=== PATIENT | male | born 1930 | race Two or more races ===

== ENCOUNTER 2018-08-05 13:19 | Inpatient (IN) | payer MEDICARE, OTHER ==
[~2018-08-05] VITALS: Ht 165.1 cm; Wt 63.5 kg
--- NOTE | 2018-08-05 14:21 | Emergency Room Report ---
History of Present Illness General Chief Complaint: General Complaint Source: Family Member Present Illness HPI Patient has a history of schizophrenia. Patient apparently is exhibiting abnormal behavior hearing things and seeing things. He appears to be more confused than usual. He appears to very weak as well. There is concerned that he perhaps might need some type of placement. Patient was brought here because of his worsening confusion. In addition he is experiencing significant bilateral lower extremity edema. Patient denies any chest pain orthopnea shortness of breath at this time. Patient does have a very slow gait appears to be confused. Patient is guided by his grandson. No other complaints are noted. Patient was seen by Dr. Wilmer Jang in the emergency department. He was felt that patient likely require admission for further management given patient' s altered mental status and likely has a UTI or other infectious process.. No other modifying factors. No other associated signs and symptoms. No other complaints were noted. Allergies: Coded Allergies: UNABLE TO ASSESS (Unverified , 08/05/18) Patient History Past Medical History: psych hx, other - Anxiety, Parkinson's disease, PMH Narrative Hernia Past Surgical History: none Pertinent Family History: none Social History: Denies: smoking, alcohol use, drug use Reviewed Nursing Documentation: PMH: Agreed; PSxH: Agreed Nursing Documentation-PMH Past Medical History: No History, Except For Hx Gastrointestinal Problems: No - hernia History Of Psychiatric Problem: No - schizoprenia, parkinson dz, anxiety Review of Systems All Other Systems: negative except mentioned in HPI Physical Exam Vital Signs Date Time Temp Pulse Resp B/P (MAP) Pulse Ox O2 Delivery O2 Flow Rate FiO2 08/05/18 13:44 97.9 56 18 166/69 (101) 95 Room Air Sp02 EP Interpretation: reviewed, normal General Appearance: alert, mild distress, thin, Chronically Ill Head: normocephalic, atraumatic Eyes: bilateral eye normal inspection ENT: normal ENT inspection, hearing grossly normal, normal voice, dry mucus membranes Neck: normal inspection, full range of motion, supple, no bony tend Respiratory: normal inspection, lungs clear, normal breath sounds, no respiratory distress, no retraction, no wheezing Cardiovascular #1: regular rate, rhythm, edema - Bilateral lower extremity Gastrointestinal: normal inspection, normal bowel sounds, non tender, soft, no guarding, other - No evidence of incarcerated hernia Genitourinary: no CVA tenderness Musculoskeletal: normal inspection, back normal, normal range of motion Neurologic: normal inspection, alert, responsive Psychiatric: other - Confused, auditory visual hallucinations per patient's grandson Skin: normal inspection, normal color, no rash Medical Decision Making Diagnostic Impression: Primary Impression: Altered mental status Additional Impression: Failure to thrive ER Course Patient presents emergency department today with generalized weakness and altered mental status. Patient apparently has not been eating has not been thriving and has not been able to perform activities of daily requirements. Patient apparently has been more confused with weight loss and was seen by Dr. Wilmer Chapin. Patient was referred to the emergency department further evaluation. Patient was seen by Dr. Wilmer Chapin in the ER as well. He knows the patient well and felt the patient is exhibiting evidence of failure to thrive altered mental status. He felt the patient require admission for further evaluation. Therefore patient was admitted to Dr. Wilmer Chapin per his request. Patient's laboratory work-up was not impressive emergency department at this time. Labs Test 08/05/18 15:30 08/05/18 15:45 White Blood Count 5.7 K/UL (4.8-10.8) Red Blood Count 4.37 M/UL (4.70-6.10) Hemoglobin 13.7 G/DL (14.2-18.0) Hematocrit 39.5 % (42.0-52.0) Mean Corpuscular Volume 90 FL (80-99) Mean Corpuscular Hemoglobin 31.3 PG (27.0-31.0) Mean Corpuscular Hemoglobin Concent 34.6 G/DL (32.0-36.0) Red Cell Distribution Width 13.0 % (11.6-14.8) Platelet Count 106 K/UL (150-450) Mean Platelet Volume 9.5 FL (6.5-10.1) Neutrophils (%) (Auto) 46.5 % (45.0-75.0) Lymphocytes (%) (Auto) 42.2 % (20.0-45.0) Monocytes (%) (Auto) 8.2 % (1.0-10.0) Eosinophils (%) (Auto) 2.4 % (0.0-3.0) Basophils (%) (Auto) 0.7 % (0.0-2.0) Sodium Level 141 MMOL/L (136-145) Potassium Level 4.4 MMOL/L (3.5-5.1) Chloride Level 105 MMOL/L (98-107) Carbon Dioxide Level 27 MMOL/L (21-32) Anion Gap 9 mmol/L (5-15) Blood Urea Nitrogen 19 mg/dL (7-18) Creatinine 0.9 MG/DL (0.55-1.30) Estimat Glomerular Filtration Rate mL/min (>60) Glucose Level 108 MG/DL (74-106) Calcium Level 9.3 MG/DL (8.5-10.1) Total Bilirubin 0.9 MG/DL (0.2-1.0) Aspartate Amino Transf (AST/SGOT) 18 U/L (15-37) Alanine Aminotransferase (ALT/SGPT) 14 U/L (12-78) Alkaline Phosphatase 93 U/L (46-116) Total Creatine Kinase 70 U/L (26-308) Creatine Kinase MB 1.5 NG/ML (0.0-3.6) Creatine Kinase MB Relative Index 2.1 Troponin I 0.006 ng/mL (0.000-0.056) Total Protein 7.0 G/DL (6.4-8.2) Albumin 3.9 G/DL (3.4-5.0) Globulin 3.1 g/dL Albumin/Globulin Ratio 1.3 (1.0-2.7) Urine Color Pale yellow Urine Appearance Clear Urine pH 6.5 (4.5-8.0) Urine Specific [place] 1.010 (1.005-1.035) Urine Protein Negative (NEGATIVE) Urine Glucose (UA) Negative (NEGATIVE) Urine Ketones Negative (NEGATIVE) Urine Blood Negative (NEGATIVE) Urine Nitrite Negative (NEGATIVE) Urine Bilirubin Negative (NEGATIVE) Urine Urobilinogen 1 MG/DL (0.0-1.0) Urine Leukocyte Esterase Negative (NEGATIVE) Urine RBC 0-2 /HPF (0 - 0) Urine WBC 0 /HPF (0 - 0) Urine Squamous Epithelial Cells Occasional /LPF Urine Bacteria Occasional /HPF (NONE) EKG Diagnostic Results Rhythm: NSR ST Segments: other - rbbb Rhythm Strip Diag. Results EP Interpretation: yes Rate: 100 Rhythm: NSR, no ectopy, other - Occasional PVCs. Chest X-Ray Diagnostic Results Chest X-Ray Diagnostic Results : Chest X-Ray Ordered: Yes # of Views/Limited/Complete: 1 View Indication: Other - Weakness EP Interpretation: Yes Interpretation: no consolidation, no effusion, no pneumothorax Impression: No acute disease Electronically Signed by: Electronically signed by Nilesh Stringer MD Last Vital Signs Date Time Temp Pulse Resp B/P (MAP) Pulse Ox O2 Delivery O2 Flow Rate FiO2 08/05/18 13:44 97.9 56 18 166/69 (101) 95 Room Air Status: improved Disposition: ADMITTED INPATIENT Condition: Serious Scripts No Active Prescriptions or Reported Meds Nilesh Stringer MD Aug 05, 2018 14:21
[2018-08-05] MEDS ORDERED: Albuterol/Ipratropium 3ml neb HHN PRN (15:15)
[2018-08-05] MEDS ORDERED: Morphine Sulfate 2mg/ml Inj(IV/IM USE ONLY) IVP PRN (15:15)
[2018-08-05] MEDS ORDERED: Miralax 17gm pkt ORAL PRN (15:15)
--- NOTE | 2018-08-05 15:16 | Consultation ---
History of Present Illness General Date patient seen: Aug 05, 2018 Chief Complaint: General Complaint Present Illness HPI 88 year old male with history of schizophrenia, Anxiety, Parkinson's disease presented to ER with CC of abnormal behavior hearing things and seeing things. He appears to be more confused than usual. He appears to be very weak as well. He was diagnosed to have UTI or other infectious process.. No other modifying factors. No other associated signs and symptoms. No other complaints were noted. Allergies: Coded Allergies: No Known Allergies (Unverified , 08/05/18) Medication History No Active Prescriptions or Reported Meds Patient History Healthcare decision maker Resuscitation status Advanced Directive on File Past Medical/Surgical History Past Medical/Surgical History: (1) Schizophrenia (2) Parkinson disease Review of Systems Constitutional: Reports: no symptoms ENT: Reports: no symptoms Physical Exam General Appearance: WD/WN Lines, tubes and drains: peripheral, central line HEENT: normocephalic, atraumatic Neck: non-tender, normal alignment Respiratory/Chest: chest wall non-tender Cardiovascular/Chest: normal peripheral pulses, normal rate Abdomen: no organomegaly Genitourinary/Rectal: normal genital exam Extremities: non-tender Last 24 Hour Vital Signs Date Time Temp Pulse Resp B/P (MAP) Pulse Ox O2 Delivery O2 Flow Rate FiO2 08/05/18 13:44 97.9 56 18 166/69 (101) 95 Room Air Height (Feet): 5 Height (Inches): 9.00 Weight (Pounds): 150 Assessment/Plan Problem List: (1) Acute encephalopathy ICD Codes: G93.40 - Encephalopathy, unspecified SNOMED: 68454191, 946955482 (2) UTI (urinary tract infection) ICD Codes: N39.0 - UTI (urinary tract infection) SNOMED: 41169130 (3) Schizophrenia ICD Codes: F20.9 - Schizophrenia, unspecified SNOMED: 67294711 (4) Parkinson disease ICD Codes: G20 - Parkinson's disease SNOMED: 69539949 Gina Rodriguez MD Aug 05, 2018 15:16
[2018-08-05 15:30] VITALS: BP 187/70
--- NOTE | 2018-08-05 15:30 | NUR ---
ED Nurse Note: FIRST CONTACT WITH PT. A/OX3. BROUGHT BY ANJELICA FOR PCP, DR. BIRMINGHAM'S RECOMMENDATION. PER ANJELICA, PT WAS ADMITTED TO [facility] AND WAS INSTRUCTED TO SEE DR. BIRMINGHAM. SEEN BY DR. BIRMINGHAM EARLIER AT [facility] ED. DOES NOT HAVE ANY MEDICAL COMPLAINTS AT THIS TIME. NO LABOR BREATHING. SKIN WARM TO DRY. DENIES ANY PAIN. WILL CONTINUE TO MONIOTOR.
--- NOTE | 2018-08-05 15:35 | NUR ---
ED Nurse Note: PER TRIAGE NURSE, PT'S GRANDSON STATED THAT PT WAS ADMITTED TO [facility] AND WAS DIAGNOSED SCHIZO AND WAS RECOMMENDED PSYCH MEDS. BUT PER GRANDSON, THE FAMILY DECIDED TO NOT START ANY PSYCH MEDS DUE TO RISK OF SIDE EFFECTS BUT PT'S SYMPTOMS GOT WORSE. THEREFORE, WAS TOLD TO BRING PT IN TO SEE DR. BIRMINGHAM.
[2018-08-05 15:52] LABS: BASOPHILS % (AUTO) 0.7 % (0.0-2.0); EOSINOPHILS % (AUTO) 2.4 % (0.0-3.0); HEMATOCRIT 39.5 % (42.0-52.0); HEMOGLOBIN 13.7 G/DL (14.2-18.0); LYMPHOCYTES % (AUTO) 42.2 % (20.0-45.0); MEAN CORPUSCULAR VOLUME 90 FL (80-99); MONOCYTES % (AUTO) 8.2 % (1.0-10.0); NEUTROPHILS % (AUTO) 46.5 % (45.0-75.0); PLATELET COUNT 106 K/UL (150-450); RED BLOOD COUNT 4.37 M/UL (4.70-6.10); WHITE BLOOD COUNT 5.7 K/UL (4.8-10.8)
[2018-08-05 15:59] LABS: APPEARANCE,URINE CLEAR; BILIRUBIN, URINE NEGATIVE (NEGATIVE); COLOR,URINE PALE YELLOW; GLUCOSE, URINE (UA) NEGATIVE (NEGATIVE); KETONES,URINE NEGATIVE (NEGATIVE); LEUKOCYTE ESTERASE ,URINE NEGATIVE (NEGATIVE); NITRITE,URINE NEGATIVE (NEGATIVE); PH,URINE 6.5 (4.5-8.0); PROTEIN,URINE NEGATIVE (NEGATIVE); UROBILINOGEN,URINE 1 MG/DL (0.0-1.0)
[2018-08-05 16:13] LABS: ANION GAP 9 mmol/L (5-15); BLOOD UREA NITROGEN 19 mg/dL (7-18); CALCIUM 9.3 MG/DL (8.5-10.1); CARBON DIOXIDE 27 MMOL/L (21-32); CHLORIDE 105 MMOL/L (98-107); CREATININE 0.9 MG/DL (0.55-1.30); POTASSIUM 4.4 MMOL/L (3.5-5.1); SODIUM 141 MMOL/L (136-145)
[2018-08-05 16:27] LABS: ALANINE AMINOTRANSFERASE 14 U/L (12-78); ALBUMIN 3.9 G/DL (3.4-5.0); ALBUMIN/GLOBULIN RATIO 1.3 (1.0-2.7); ALKALINE PHOSPHATASE 93 U/L (46-116); ASPARTATE AMINO TRANSFERASE 18 U/L (15-37); BILIRUBIN,TOTAL 0.9 MG/DL (0.2-1.0); CKMB 1.5 NG/ML (0.0-3.6); CREATINE KINASE 70 U/L (26-308)
[2018-08-05 17:31] VITALS: BP 120/82
--- NOTE | 2018-08-05 17:40 | NUR ---
ED Nurse Note: PER CHARGE NURSE FROM 4E, RECEIVING RN IS WITH ANOTHER PATIENT AND UNABLE TO TAKE REPORT, WAS TOLD TO CALL BACK IN 10 MIN. CHARGE NURSE MADE AWARE.
--- NOTE | 2018-08-05 17:43 | NUR ---
ED Nurse Note: PER STUCCO PLASTERER, UA RESULT IS PROCESSED FOR ADMITTING DOCTOR'S ORDER SO IT'S OK THAT ERMD'S ORDER FOR UA IS NOT PROCESSED ON THE CHART.
--- NOTE | 2018-08-05 17:59 | NUR ---
ED Nurse Note: TELEPHONE REPORT GIVEN TO LEXIS RIOS
[2018-08-05 18:01] VITALS: BP 140/99
[2018-08-05 18:20] VITALS: BP 160/91
--- NOTE | 2018-08-05 18:20 | NUR ---
NURSE NOTES: PATIENT RECEIVED FROM ER DEPT. VIA [facility]. REPORT RECEIVED FROM MARISA PIRES. AOX1-2. NO FAMILY PRESENT. BELONGINGS CHECKED AND ACCOUNTED FOR.. PATIENT TRANSFERRED INTO [place] BED WITH BED ALARM ACTIVATED. ORIENTED PATIENT TO ROOM. CALL LIGHT WITHIN REACH. RETURN DEMONSTRATION FAIR. NEEDS REINFORCEMENT.BED IN LOWEST AND LOCKED POSITION.NEW ADMIT ORDERS RECEIVED BY ER DEPT.
--- NOTE | 2018-08-05 18:36 | Diagnostic Imaging Report ---
Indication: Cough Technique: One view of the chest Comparison: none Findings: The right costophrenic angle is cut off the exam. Bilateral nodular opacities at the lung bases may reflect calcified granulomata or nipple shadows. These are symmetric, favoring the latter. Lungs and pleural spaces are otherwise clear. Heart size is normal. Impression: No definite acute process. Findings as noted This agrees with the preliminary interpretation provided by the emergency room physician
--- NOTE | 2018-08-05 18:45 | History and Physical Report ---
DATE OF ADMISSION: 08/05/2018 CONSULTANTS: 1. Zia Carroll M.D. 2. Gina Rodriguez M.D. 3. Ethel Cavazos M.D. CHIEF COMPLAINT: Weakness and confusion. BRIEF HISTORY: This is an 88-year-old male, who lives at home in an apartment. Son noticed that he has been getting weaker and more confused in the last few days, possibly some dysuria, possibly urinary tract infection . The patient was sent to [facility], being seen now in the ER, most likely will be admitted, so he transferred to a Nursing Facility for rehabilitation after. Currently, the patient walks with a cane, slightly confused, oriented x2, in no acute distress. PAST MEDICAL HISTORY: Anxiety. PAST SURGICAL HISTORY: Prostate surgery. MEDICATIONS: We will obtain the list shortly. ALLERGIES: Denies. SOCIAL HISTORY: No smoking. No alcohol. No intravenous drug abuse. FAMILY HISTORY: Noncontributory. PHYSICAL EXAMINATION: GENERAL: Calm, sitting on the chair in ER, oriented x2, in no acute distress. VITAL SIGNS: Temperature 97 degrees, pulse 56, respirations 18, and blood pressure 166/69. CARDIOVASCULAR: No murmurs. LUNGS: Distant and clear. ABDOMEN: Bowel sounds positive. Soft, nontender, and nondistended. EXTREMITIES: Shows no cyanosis, clubbing, or edema. NEUROLOGIC: The patient moves all extremities, slightly weak. LABORATORY AND DIAGNOSTIC DATA: Laboratories are pending. ASSESSMENT: 1. Weakness. 2. Confusion. 3. Anxiety. PLAN: 1. Admit to . 2. PT, OT, and dietary followup. 3. Check laboratories when become available. 4. Resume home medications. 5. We will continue to follow this patient medically. Wilmer Chapin D.O. DR: NILDA JOB#: [id number] CC:
--- NOTE | 2018-08-05 19:34 | NUR ---
NURSE NOTES: HAND-OFF: Report given to SUNITHA PIRES.
--- NOTE | 2018-08-05 19:49 | NUR ---
NURSE NOTES: Received patient from LEXIS Mcelroy. Received patient laying on the bed comfortably. Patient is AAO x 2. Patient is breathing evenly and unlabored without signs of distress, discomfort, or SOB. No signs of pain noted at this time. Patient has right AC 20 g IV saline locked intact, dry, and clean. Patient bed is placed at the lowest level with alarm and brakes on. Patient's call light is placed within reach for any assistance needed. Will continue to monitor.
--- NOTE | 2018-08-05 19:51 | NUR ---
NURSE NOTES: SPOKE TO NURSING MERCURY CRACKING TESTER OF PATIENT'S [employer] OFFSET PRESS FEEDER TO BE PLACED IN SAFE. PER MERCURY CRACKING TESTER, GIVE PERSONAL ITEM TO ONCOMING RN AND FOR THEM TO CALL TO HAVE SECURITY AND NURSING MERCURY CRACKING TESTER AT BEDSIDE TO WITNESS AND HAVE PT. SIGN AND THEN PLACE IN SAFE. MADE OVIDIO HELTON RN AWARE. BELT HANDED OFF TO NURSE.
[2018-08-05 20:00] VITALS: BP 152/85
[2018-08-05] MEDS ORDERED: Vancomycin 1.25gm Premix IVPB ONE (22:00)
--- NOTE | 2018-08-05 22:00 | NUR ---
NURSE NOTES: Went over the belongings with the patient and patient's grandson. Patient decided to sent home checkbook, ramirez, and movado watch with his grandson. Patient decided to keep the wallet and victoria within, farragamo belt, clothings, shoes, and cellphone with him. Patient was not able to sign the belongings paper at this time so the grandson signed for him.
[2018-08-05] MEDS: Heparin 5000 units/ml inj SUBQ SCH (22:18)
[2018-08-05] MEDS ORDERED: Cefepime HCl 2 GM in D5W 110 ML IV ONE (23:00)
--- NOTE | 2018-08-05 23:38 | Consultation ---
History of Present Illness General Date patient seen: Aug 05, 2018 Chief Complaint: Confusion/ Weakness Referring physician: Dr. Wilmer Chapin Present Illness HPI Miesha Mendez is an 88-year-old male with a PMH of anxiety and prostate surgery. He lives in an apartment with his adult son, who recently noticed that he has been getting weaker and more confused in the last few days, possibly with some dysuria, possibly urinary tract infection. As such, his son doris him into [facility] ED for assessment of his symptoms. Currently, the patient walks with a cane, slightly confused, oriented x2, in no acute distress. Neurological consultation has been requested to assess these symptoms. Allergies: Coded Allergies: No Known Allergies (Unverified , 08/05/18) Medication History Scheduled Memantine Hcl* (Namenda*), 5 MG ORAL DAILY, (Reported) Polyethylene Glycol 3350* (Miralax*), 17 GM ORAL DAILY, (Reported) Temazepam (Temazepam*), 15 MG ORAL BEDTIME, (Reported) Miscellaneous Medications Ipratropium/Albuterol Sulfate (DuoNeb 0.5-3(2.5)mg/3ml), 3 ML HHN, (Reported) Patient History Limited by: medical condition History Provided By: Medical Record Healthcare decision maker Resuscitation status Advanced Directive on File Past Medical/Surgical History Past Medical/Surgical History: (1) Acute encephalopathy (2) Parkinson disease (3) Schizophrenia Review of Systems Constitutional: Denies: no symptoms, see HPI, chills, sweats, fever, malaise, weakness, other Eye: Denies: no symptoms, see HPI, eye pain, blurred vision, tearing, double vision, nose pain, nose congestion, acuity changes, discharge, other ENT: Denies: no symptoms, see HPI, ear pain, ear discharge, nose pain, nose congestion, throat pain, throat swelling, mouth pain, hearing loss, nasal discharge, other Respiratory: Denies: no symptoms, see HPI, cough, orthopnea, shortness of breath, stridor, wheezing, TORRES, sputum, other Cardiovascular: Denies: no symptoms, see HPI, chest pain, edema, palpitations, syncope, PND, other Gastrointestinal: Denies: no symptoms, see HPI, abdominal pain, constipation, diarrhea, nausea, vomiting, melena, hematemesis, other Genitourinary: Denies: no symptoms, see HPI, discharge, dysuria, frequency, hematuria, pain, retention, incontinence, urgency, vag bleed/dc, other Musculoskeletal: Denies: no symptoms, see HPI, back pain, gout, joint pain, joint swelling, muscle pain, muscle stiffness, other Skin: Denies: no symptoms, see HPI, rash, change in color, change in hair/nails , dryness, lesions, other Psychiatric: Denies: no symptoms, see HPI, prior hx, anxiety, depressed feelings, emotional problems, SI, HI, hallucinations, other Neurological: Denies: no symptoms, see HPI, headache, numbness, paresthesia, seizure, tingling, tremors, focal weakness, syncope, dizziness, other Endocrine: Denies: no symptoms, see HPI, excessive sweating, flushing, intolerance to temperature, increased thirst, increased urine, unexplained weight loss, other Hematologic/Lymphatic: Denies: no symptoms, see HPI, anemia, blood clots, easy bleeding, easy bruising, swollen glands, diathesis, other All Other Systems: negative except mentioned in HPI Physical Exam General Appearance: WD/WN, no apparent distress, alert, alert oriented x3 Lines, tubes and drains: peripheral HEENT: normocephalic, atraumatic, anicteric, mucous membranes moist, PERRL, EOMI, pharynx normal, supple, no JVD Neck: normal alignment, supple, normal inspection Respiratory/Chest: normal breath sounds, no respiratory distress, no accessory muscle use Cardiovascular/Chest: normal peripheral pulses, no JVD Extremities: normal range of motion, non-tender, normal inspection, no edema, no cyanosis Skin Exam: normal pigmentation, warm/dry, no diaphoresis Neurologic: in store banker II-XII grossly normal, no motor/sensory deficits, alert, oriented x 3, responsive, normal mood/affect Musculoskeletal: normal muscle bulk, no effusion Last 24 Hour Vital Signs Date Time Temp Pulse Resp B/P (MAP) Pulse Ox O2 Delivery O2 Flow Rate FiO2 08/05/18 22:06 Room Air 08/05/18 20:00 97.8 62 20 152/85 (107) 95 08/05/18 18:20 98.2 72 18 160/91 (114) 98 08/05/18 18:07 97.9 68 18 140/99 97 Room Air 08/05/18 18:01 68 18 140/99 97 Room Air 08/05/18 17:31 63 26 120/82 97 Room Air 08/05/18 15:30 64 18 Room Air 08/05/18 15:30 64 17 187/70 98 Room Air 08/05/18 13:44 97.9 56 18 166/69 (101) 95 Room Air Laboratory Tests Test 08/05/18 15:30 08/05/18 15:45 White Blood Count 5.7 K/UL (4.8-10.8) Red Blood Count 4.37 M/UL (4.70-6.10) L Hemoglobin 13.7 G/DL (14.2-18.0) L Hematocrit 39.5 % (42.0-52.0) L Mean Corpuscular Volume 90 FL (80-99) Mean Corpuscular Hemoglobin 31.3 PG (27.0-31.0) H Mean Corpuscular Hemoglobin Concent 34.6 G/DL (32.0-36.0) Red Cell Distribution Width 13.0 % (11.6-14.8) Platelet Count 106 K/UL (150-450) L Mean Platelet Volume 9.5 FL (6.5-10.1) Neutrophils (%) (Auto) 46.5 % (45.0-75.0) Lymphocytes (%) (Auto) 42.2 % (20.0-45.0) Monocytes (%) (Auto) 8.2 % (1.0-10.0) Eosinophils (%) (Auto) 2.4 % (0.0-3.0) Basophils (%) (Auto) 0.7 % (0.0-2.0) Sodium Level 141 MMOL/L (136-145) Potassium Level 4.4 MMOL/L (3.5-5.1) Chloride Level 105 MMOL/L (98-107) Carbon Dioxide Level 27 MMOL/L (21-32) Anion Gap 9 mmol/L (5-15) Blood Urea Nitrogen 19 mg/dL (7-18) H Creatinine 0.9 MG/DL (0.55-1.30) Estimat Glomerular Filtration Rate mL/min (>60) Glucose Level 108 MG/DL (74-106) H Calcium Level 9.3 MG/DL (8.5-10.1) Total Bilirubin 0.9 MG/DL (0.2-1.0) Aspartate Amino Transf (AST/SGOT) 18 U/L (15-37) Alanine Aminotransferase (ALT/SGPT) 14 U/L (12-78) Alkaline Phosphatase 93 U/L (46-116) Total Creatine Kinase 70 U/L (26-308) Creatine Kinase MB 1.5 NG/ML (0.0-3.6) Creatine Kinase MB Relative Index 2.1 Troponin I 0.006 ng/mL (0.000-0.056) Total Protein 7.0 G/DL (6.4-8.2) Albumin 3.9 G/DL (3.4-5.0) Globulin 3.1 g/dL Albumin/Globulin Ratio 1.3 (1.0-2.7) Urine Color Pale yellow Urine Appearance Clear Urine pH 6.5 (4.5-8.0) Urine Specific [place] 1.010 (1.005-1.035) Urine Protein Negative (NEGATIVE) Urine Glucose (UA) Negative (NEGATIVE) Urine Ketones Negative (NEGATIVE) Urine Blood Negative (NEGATIVE) Urine Nitrite Negative (NEGATIVE) Urine Bilirubin Negative (NEGATIVE) Urine Urobilinogen 1 MG/DL (0.0-1.0) H Urine Leukocyte Esterase Negative (NEGATIVE) Urine RBC 0-2 /HPF (0 - 0) H Urine WBC 0 /HPF (0 - 0) Urine Squamous Epithelial Cells Occasional /LPF Urine Bacteria Occasional /HPF (NONE) Height (Feet): 5 Height (Inches): 5.00 Weight (Pounds): 140 Medications Current Medications Medications (Trade) Dose Ordered Sig/Cosme Route PRN Reason Start Time Stop Time Status Last Admin Dose Admin Acetaminophen (Tylenol) 650 mg Q4H PRN ORAL T>100.5 08/05/18 15:15 09/04/18 15:14 Albuterol/ Ipratropium (Albuterol/ Ipratropium) 3 ml Q4H PRN HHN Shortness of Breath 08/05/18 15:15 08/10/18 15:14 Cefepime HCl 2 gm/ Dextrose 110 ml @ 220 mls/hr Q24H IV 08/06/18 11:00 08/13/18 10:59 Heparin Sodium (Porcine) (Heparin 5000 units/ml) 5,000 units EVERY 12 HOURS SUBQ 08/05/18 21:00 09/04/18 20:59 08/05/18 22:18 Morphine Sulfate (Morphine Sulfate) 2 mg Q4H PRN IVP Moderate Pain (Pain Scale 4-6) 08/05/18 15:15 08/12/18 15:14 Ondansetron HCl (Zofran) 4 mg Q6H PRN IVP Nausea & Vomiting 08/05/18 15:15 09/04/18 15:14 Phenazopyridine HCl (Pyridium) 100 mg DAILYPRN PRN ORAL dysuria 08/05/18 15:15 09/04/18 15:14 Polyethylene Glycol (Miralax) 17 gm DAILYPRN PRN ORAL Constipation 08/05/18 15:15 09/04/18 15:14 Temazepam (Restoril) 15 mg HSPRN PRN ORAL Insomnia 08/05/18 21:00 08/12/18 20:59 Vancomycin HCl (Vanco rx to dose) 1 ea DAILY PRN MISC per rx protocol 08/05/18 21:30 09/04/18 21:29 Vancomycin HCl 750 mg/Sodium Chloride 275 ml @ 183.333 mls/hr Q24H IVPB 08/06/18 22:00 08/11/18 21:59 Assessment/Plan Problem List: (1) UTI (urinary tract infection) ICD Codes: N39.0 - UTI (urinary tract infection) SNOMED: 06815471 (2) Altered mental status ICD Codes: R41.82 - Altered mental status, unspecified SNOMED: 114679478 (3) Acute encephalopathy ICD Codes: G93.40 - Encephalopathy, unspecified SNOMED: 57616484, 688900360 (4) Parkinson disease ICD Codes: G20 - Parkinson's disease SNOMED: 94933580 (5) Schizophrenia ICD Codes: F20.9 - Schizophrenia, unspecified SNOMED: 19336472 (6) Hypertension ICD Codes: I10 - Essential (primary) hypertension SNOMED: 57680408 Status: doing well Assessment/Plan: Likely increased AMS secondary to UTI- Acute Encephalopathy, now improved with IV Fluids and ABx SBP<140 Frequent Reorientation Maintain good sleep hygiene Psych Consult PRN Recommend avoidance of Opioids, benzos or anticholinergic meds. No indication for neuroimaging at this time. Adriana Lacy N.P. Aug 05, 2018 23:38
[2018-08-06] VITALS: BP 119/60
[2018-08-06] MEDS ORDERED: Vancomycin 1 GM in D5W 275 ML IV SCH (00:30)
[2018-08-06 02:54] LABS: APPEARANCE,URINE CLEAR; BILIRUBIN, URINE NEGATIVE (NEGATIVE); GLUCOSE, URINE (UA) NEGATIVE (NEGATIVE); KETONES,URINE NEGATIVE (NEGATIVE); LEUKOCYTE ESTERASE ,URINE NEGATIVE (NEGATIVE); NITRITE,URINE NEGATIVE (NEGATIVE); PH,URINE 5 (4.5-8.0); PROTEIN,URINE NEGATIVE (NEGATIVE); UROBILINOGEN,URINE NORMAL MG/DL (0.0-1.0)
[2018-08-06 03:07] LABS: COLOR,URINE YELLOW
[2018-08-06 04:00] VITALS: BP 118/96
--- NOTE | 2018-08-06 07:30 | NUR ---
NURSE NOTES: Received pt from LEXIS HERNANDEZ. pt is confused and orient x2. Pt is in RA, No SOB or acute respiratory distress noted. Pt has in tact iv access RAC 20G SL. All needs attended, bed is locked and is in the lowest position, call light within east reach. will continue to monitor. Addendum: 08/06/18 at 0747 by Clyde Jenkins RN ERROR Received pt from LEXIS QUEVEDO/KERRY.
--- NOTE | 2018-08-06 07:36 | NUR ---
HAND-OFF: Report given to LEXIS Tang.
[2018-08-06 08:00] VITALS: BP 120/95
[2018-08-06] MEDS: Heparin 5000 units/ml inj SUBQ SCH ×2 (08:58→21:19)
--- NOTE | 2018-08-06 09:15 | NUR ---
PT EVALUATION NOTE Patient seen for initial evaluation, see complete evaluation for details. Patient presents with generalized weakness which affects patient's ability to transfer and ambulate. Patient requires assistance to transfer and ambulate, able to ambulate up to 50 ft with a FWW with decreased safety awareness and balance. Patient will benefit from skilled inpatient PT intervention to address strength, balance, safety and functional mobility. Recommend home with home PT vs short term SNF for rehab at discharge once medically cleared by MD depending on patient's progress. Recommend FWW for home ambulation (if patient does not already own one). Addendum: 08/06/18 at 1310 by SEAN CASTILLO PT Amended: Links added.
[2018-08-06 10:07] LABS: BASOPHILS % (AUTO) 1.3 % (0.0-2.0); HEMATOCRIT 39.4 % (42.0-52.0); HEMOGLOBIN 13.4 G/DL (14.2-18.0); LYMPHOCYTES % (AUTO) 29.8 % (20.0-45.0); MEAN CORPUSCULAR VOLUME 93 FL (80-99); PLATELET COUNT 103 K/UL (150-450); RED BLOOD COUNT 4.23 M/UL (4.70-6.10); RED CELL DISTRIBUTION WIDTH 12.5 % (11.6-14.8); WHITE BLOOD COUNT 5.1 K/UL (4.8-10.8)
[2018-08-06 10:14] LABS: ALANINE AMINOTRANSFERASE 14 U/L (12-78); ALBUMIN 3.5 G/DL (3.4-5.0); ALBUMIN/GLOBULIN RATIO 1.2 (1.0-2.7); ALKALINE PHOSPHATASE 87 U/L (46-116); ANION GAP 10 mmol/L (5-15); ASPARTATE AMINO TRANSFERASE 16 U/L (15-37); BILIRUBIN,TOTAL 0.8 MG/DL (0.2-1.0); BLOOD UREA NITROGEN 21 mg/dL (7-18); CALCIUM 8.9 MG/DL (8.5-10.1); CARBON DIOXIDE 25 MMOL/L (21-32); CHLORIDE 106 MMOL/L (98-107); POTASSIUM 3.8 MMOL/L (3.5-5.1); SODIUM 141 MMOL/L (136-145)
[2018-08-06] MEDS: Cefepime HCl 2 GM in D5W 110 ML IV SCH (11:45)
[2018-08-06 12:00] VITALS: BP 126/89
--- NOTE | 2018-08-06 13:24 | NUR ---
RD ASSESSMENT & RECOMMENDATIONS SEE CARE ACTIVITY FOR COMPLETE ASSESSMENT DAILY ESTIMATED NEEDS: Needs based on Cardiac, advanced age 63.6lg 25-30 kcals/kg 9867-2709 total kcals 1-1.2 g protein/kg 64-76 g total protein 20-25 mL/kg 3503-3587 total fluid mLs NUTRITION DIAGNOSIS: Self feeding difficulty r/t advanced age, confusion, as evidenced by pt requires assistance at mealtimes. CURRENT DIET: Regular PO DIET RECOMMENDATIONS: Maintain Regular diet (texture as tolerated) ADDITIONAL RECOMMENDATIONS: 1) Rec CMM INSPECTOR eval for appropriate texture d/t advanced age + confusion 2) Monitor po intake/ need for snacks and / or supplements 3) Weekly calibrated bed weights OR obtain standing weights
--- NOTE | 2018-08-06 14:22 | Consultation ---
History of Present Illness General Date patient seen: Aug 06, 2018 Chief Complaint: General Complaint Referring physician: Dr. Wilmer Chapin Reason for Consultation: UTI Present Illness HPI Mr. Mendez is a 88 yo male with PMHx of Parkinsons, Schizophrenia and anxiety who was brought to the ED by family for increased confusion. Per family he was having halucinations and was more confused and weak then nromal. He also has b/ l edema of the legs. He was ad mitted for possible UTI as he had reported dyuria and increased AMS. He had no fever, leukocytosis, abnormal CXR or UA. He was started empirically on Cefepime and Vancomcyin. Blood Cx are pending. Today the patient still confused and cant tell me why he is in the hospital but denies dysuria. ID was consulted for UTI PMHx/PSHx Parkinsons Schizophrenia Anxiety SocHx No E/T/D FamHx Not Contributory Allergies: Coded Allergies: No Known Allergies (Unverified , 08/05/18) Medication History No Active Prescriptions or Reported Meds Patient History Healthcare decision maker Resuscitation status Advanced Directive on File Review of Systems ROS Narrative Unable to obtain as patient confused Physical Exam Last 24 Hour Vital Signs Date Time Temp Pulse Resp B/P (MAP) Pulse Ox O2 Delivery O2 Flow Rate FiO2 08/06/18 12:00 97.5 65 20 126/89 (101) 99 08/06/18 08:00 97.6 66 19 120/95 (103) 98 08/06/18 07:53 77 18 96 Room Air 21 08/06/18 04:00 97.0 62 20 118/96 (103) 97 08/06/18 00:00 97.3 62 18 119/60 (79) 96 08/05/18 22:06 Room Air 08/05/18 20:00 97.8 62 20 152/85 (107) 95 08/05/18 18:20 98.2 72 18 160/91 (114) 98 08/05/18 18:07 97.9 68 18 140/99 97 Room Air 08/05/18 18:01 68 18 140/99 97 Room Air 08/05/18 17:31 63 26 120/82 97 Room Air 08/05/18 15:30 64 18 Room Air 08/05/18 15:30 64 17 187/70 98 Room Air Intake and Output 08/05/18 08/06/18 18:59 06:59 Intake Total 385.000 ml Balance 385.000 ml Intake IV Total 385.000 ml # Voids 1 Laboratory Tests Test 08/05/18 15:30 08/05/18 15:45 08/06/18 00:00 08/06/18 09:26 White Blood Count 5.7 K/UL (4.8-10.8) 5.1 K/UL (4.8-10.8) Red Blood Count 4.37 M/UL (4.70-6.10) L 4.23 M/UL (4.70-6.10) L Hemoglobin 13.7 G/DL (14.2-18.0) L 13.4 G/DL (14.2-18.0) L Hematocrit 39.5 % (42.0-52.0) L 39.4 % (42.0-52.0) L Mean Corpuscular Volume 90 FL (80-99) 93 FL (80-99) Mean Corpuscular Hemoglobin 31.3 PG (27.0-31.0) H 31.8 PG (27.0-31.0) H Mean Corpuscular Hemoglobin Concent 34.6 G/DL (32.0-36.0) 34.1 G/DL (32.0-36.0) Red Cell Distribution Width 13.0 % (11.6-14.8) 12.5 % (11.6-14.8) Platelet Count 106 K/UL (150-450) L 103 K/UL (150-450) L Mean Platelet Volume 9.5 FL (6.5-10.1) 11.1 FL (6.5-10.1) H Neutrophils (%) (Auto) 46.5 % (45.0-75.0) 58.0 % (45.0-75.0) Lymphocytes (%) (Auto) 42.2 % (20.0-45.0) 29.8 % (20.0-45.0) Monocytes (%) (Auto) 8.2 % (1.0-10.0) 9.0 % (1.0-10.0) Eosinophils (%) (Auto) 2.4 % (0.0-3.0) 2.0 % (0.0-3.0) Basophils (%) (Auto) 0.7 % (0.0-2.0) 1.3 % (0.0-2.0) Sodium Level 141 MMOL/L (136-145) 141 MMOL/L (136-145) Potassium Level 4.4 MMOL/L (3.5-5.1) 3.8 MMOL/L (3.5-5.1) Chloride Level 105 MMOL/L (98-107) 106 MMOL/L (98-107) Carbon Dioxide Level 27 MMOL/L (21-32) 25 MMOL/L (21-32) Anion Gap 9 mmol/L (5-15) 10 mmol/L (5-15) Blood Urea Nitrogen 19 mg/dL (7-18) H 21 mg/dL (7-18) H Creatinine 0.9 MG/DL (0.55-1.30) 1.0 MG/DL (0.55-1.30) Estimat Glomerular Filtration Rate mL/min (>60) mL/min (>60) Glucose Level 108 MG/DL (74-106) H 140 MG/DL (74-106) H Calcium Level 9.3 MG/DL (8.5-10.1) 8.9 MG/DL (8.5-10.1) Total Bilirubin 0.9 MG/DL (0.2-1.0) 0.8 MG/DL (0.2-1.0) Aspartate Amino Transf (AST/SGOT) 18 U/L (15-37) 16 U/L (15-37) Alanine Aminotransferase (ALT/SGPT) 14 U/L (12-78) 14 U/L (12-78) Alkaline Phosphatase 93 U/L (46-116) 87 U/L (46-116) Total Creatine Kinase 70 U/L (26-308) Creatine Kinase MB 1.5 NG/ML (0.0-3.6) Creatine Kinase MB Relative Index 2.1 Troponin I 0.006 ng/mL (0.000-0.056) Total Protein 7.0 G/DL (6.4-8.2) 6.4 G/DL (6.4-8.2) Albumin 3.9 G/DL (3.4-5.0) 3.5 G/DL (3.4-5.0) Globulin 3.1 g/dL 2.9 g/dL Albumin/Globulin Ratio 1.3 (1.0-2.7) 1.2 (1.0-2.7) Urine Color Pale yellow Yellow Urine Appearance Clear Clear Urine pH 6.5 (4.5-8.0) 5 (4.5-8.0) Urine Specific [place] 1.010 (1.005-1.035) 1.015 (1.005-1.035) Urine Protein Negative (NEGATIVE) Negative (NEGATIVE) Urine Glucose (UA) Negative (NEGATIVE) Negative (NEGATIVE) Urine Ketones Negative (NEGATIVE) Negative (NEGATIVE) Urine Blood Negative (NEGATIVE) Negative (NEGATIVE) Urine Nitrite Negative (NEGATIVE) Negative (NEGATIVE) Urine Bilirubin Negative (NEGATIVE) Negative (NEGATIVE) Urine Urobilinogen 1 MG/DL (0.0-1.0) H Normal MG/DL (0.0-1.0) Urine Leukocyte Esterase Negative (NEGATIVE) Negative (NEGATIVE) Urine RBC 0-2 /HPF (0 - 0) H Urine WBC 0 /HPF (0 - 0) Urine Squamous Epithelial Cells Occasional /LPF Urine Bacteria Occasional /HPF (NONE) Height (Feet): 5 Height (Inches): 5.00 Weight (Pounds): 140 Medications Current Medications Medications (Trade) Dose Ordered Sig/Cosme Route PRN Reason Start Time Stop Time Status Last Admin Dose Admin Acetaminophen (Tylenol) 650 mg Q4H PRN ORAL T>100.5 08/05/18 15:15 09/04/18 15:14 Albuterol/ Ipratropium (Albuterol/ Ipratropium) 3 ml Q4H PRN HHN Shortness of Breath 08/05/18 15:15 08/10/18 15:14 Cefepime HCl 2 gm/ Dextrose 110 ml @ 220 mls/hr Q24H IV 08/06/18 11:00 08/13/18 10:59 08/06/18 11:45 Heparin Sodium (Porcine) (Heparin 5000 units/ml) 5,000 units EVERY 12 HOURS SUBQ 08/05/18 21:00 09/04/18 20:59 08/06/18 08:58 Morphine Sulfate (Morphine Sulfate) 2 mg Q4H PRN IVP Moderate Pain (Pain Scale 4-6) 08/05/18 15:15 08/12/18 15:14 Ondansetron HCl (Zofran) 4 mg Q6H PRN IVP Nausea & Vomiting 08/05/18 15:15 09/04/18 15:14 Phenazopyridine HCl (Pyridium) 100 mg DAILYPRN PRN ORAL dysuria 08/05/18 15:15 09/04/18 15:14 Polyethylene Glycol (Miralax) 17 gm DAILYPRN PRN ORAL Constipation 08/05/18 15:15 09/04/18 15:14 Temazepam (Restoril) 15 mg HSPRN PRN ORAL Insomnia 08/05/18 21:00 08/12/18 20:59 Vancomycin HCl (Vanco rx to dose) 1 ea DAILY PRN MISC per rx protocol 08/05/18 21:30 09/04/18 21:29 Vancomycin HCl 750 mg/Sodium Chloride 275 ml @ 183.333 mls/hr Q24H IVPB 08/06/18 22:00 08/11/18 21:59 Objective Narrative Gen: NAD HEENT: NCAT, MMM, EOMI, PERRL, No Oral lesion, no scleral icterus NECK: full range of motion, supple, no meningismus, No LAD, No JVD LUNGS: CTAB, No W/C, No Accessory muscle use CARDS: RRR, S1, S2, No M/R/G, ABD: Soft, NT, ND, No R/G, + BS, No HSM, No Masses : Deferred Ext: C/C/E, Pulses 2+ B/L (DP, Rad): NEURO: A/O x 1, Strength and Sensation Grossly intact PSYCH: Normal mood and affect SKIN: Warm/dry, No rashes Assessment/Plan Assessment/Plan: 88 yo male with PMHx of Parkinsons, Schizophrenia and anxiety who was brought to the ED by family for increased confusion. UTI UA but hx of confusion and dysuria f/u UCx Parkinsons Schizophrenia Anxiety PLAN: - Continue Cefepime #2 and Vancomycin #2 for now pending Cx - Monitor CBC and Temps - f/u Cultures Thank you for this consult. We will continue to follow the patient during this hospitalization. Jesús Subramanian MD Aug 06, 2018 14:22
--- NOTE | 2018-08-06 14:55 | Pulmonology Progress Note ---
Assessment/Plan Problems: (1) Acute encephalopathy (2) UTI (urinary tract infection) (3) Schizophrenia (4) Parkinson disease Assessment/Plan f/u wbc ID evaluation pt/ot venous doppler of legs obtain home meds neuro evaluation Subjective ROS Limited/Unobtainable: No Constitutional: Reports: no symptoms HEENT: Repors: no symptoms Respiratory: Reports: no symptoms Allergies: Coded Allergies: No Known Allergies (Unverified , 08/05/18) Objective Last 24 Hour Vital Signs Date Time Temp Pulse Resp B/P (MAP) Pulse Ox O2 Delivery O2 Flow Rate FiO2 08/06/18 12:00 97.5 65 20 126/89 (101) 99 08/06/18 08:00 97.6 66 19 120/95 (103) 98 08/06/18 07:53 77 18 96 Room Air 21 08/06/18 04:00 97.0 62 20 118/96 (103) 97 08/06/18 00:00 97.3 62 18 119/60 (79) 96 08/05/18 22:06 Room Air 08/05/18 20:00 97.8 62 20 152/85 (107) 95 08/05/18 18:20 98.2 72 18 160/91 (114) 98 08/05/18 18:07 97.9 68 18 140/99 97 Room Air 08/05/18 18:01 68 18 140/99 97 Room Air 08/05/18 17:31 63 26 120/82 97 Room Air 08/05/18 15:30 64 18 Room Air 08/05/18 15:30 64 17 187/70 98 Room Air Intake and Output 08/05/18 08/06/18 18:59 06:59 Intake Total 385.000 ml Balance 385.000 ml Intake IV Total 385.000 ml # Voids 1 General Appearance: WD/WN HEENT: normocephalic, anicteric Respiratory/Chest: chest wall non-tender, lungs clear, chest wall tender Cardiovascular: normal peripheral pulses, normal rate, regularly irregular Abdomen: normal bowel sounds Genitourinary: normal external genitalia Extremities: no clubbing Skin: no rash Laboratory Tests 08/05/18 15:30: White Blood Count 5.7, Red Blood Count 4.37L, Hemoglobin 13.7L, Hematocrit 39.5L , Mean Corpuscular Volume 90, Mean Corpuscular Hemoglobin 31.3H, Mean Corpuscular Hemoglobin Concent 34.6, Red Cell Distribution Width 13.0, Platelet Count 106L, Mean Platelet Volume 9.5, Neutrophils (%) (Auto) 46.5, Lymphocytes ( %) (Auto) 42.2, Monocytes (%) (Auto) 8.2, Eosinophils (%) (Auto) 2.4, Basophils (%) (Auto) 0.7, Sodium Level 141, Potassium Level 4.4, Chloride Level 105, Carbon Dioxide Level 27, Anion Gap 9, Blood Urea Nitrogen 19H, Creatinine 0.9, Estimat Glomerular Filtration Rate , Glucose Level 108H, Calcium Level 9.3, Total Bilirubin 0.9, Aspartate Amino Transf (AST/SGOT) 18, Alanine Aminotransferase (ALT/SGPT) 14, Alkaline Phosphatase 93, Total Creatine Kinase 70, Creatine Kinase MB 1.5, Creatine Kinase MB Relative Index 2.1, Troponin I 0.006, Total Protein 7.0, Albumin 3.9, Globulin 3.1, Albumin/Globulin Ratio 1.3 08/05/18 15:45: Urine Color Pale yellow, Urine Appearance Clear, Urine pH 6.5, Urine Specific [place] 1.010, Urine Protein Negative, Urine Glucose (UA) Negative, Urine Ketones Negative, Urine Blood Negative, Urine Nitrite Negative, Urine Bilirubin Negative, Urine Urobilinogen 1H, Urine Leukocyte Esterase Negative, Urine RBC 0- 2H, Urine WBC 0, Urine Squamous Epithelial Cells Occasional, Urine Bacteria Occasional 08/06/18 00:00: Urine Color Yellow, Urine Appearance Clear, Urine pH 5, Urine Specific [place] 1.015, Urine Protein Negative, Urine Glucose (UA) Negative, Urine Ketones Negative, Urine Blood Negative, Urine Nitrite Negative, Urine Bilirubin Negative , Urine Urobilinogen Normal, Urine Leukocyte Esterase Negative 08/06/18 09:26: White Blood Count 5.1, Red Blood Count 4.23L, Hemoglobin 13.4L, Hematocrit 39.4L , Mean Corpuscular Volume 93, Mean Corpuscular Hemoglobin 31.8H, Mean Corpuscular Hemoglobin Concent 34.1, Red Cell Distribution Width 12.5, Platelet Count 103L, Mean Platelet Volume 11.1H, Neutrophils (%) (Auto) 58.0, Lymphocytes (%) (Auto) 29.8, Monocytes (%) (Auto) 9.0, Eosinophils (%) (Auto) 2.0, Basophils (%) (Auto) 1.3, Sodium Level 141, Potassium Level 3.8, Chloride Level 106, Carbon Dioxide Level 25, Anion Gap 10, Blood Urea Nitrogen 21H, Creatinine 1.0, Estimat Glomerular Filtration Rate , Glucose Level 140H, Calcium Level 8.9, Total Bilirubin 0.8, Aspartate Amino Transf (AST/SGOT) 16, Alanine Aminotransferase (ALT/SGPT) 14, Alkaline Phosphatase 87, Total Protein 6.4, Albumin 3.5, Globulin 2.9, Albumin/Globulin Ratio 1.2 Current Medications Medications (Trade) Dose Ordered Sig/Cosme Route PRN Reason Start Time Stop Time Status Last Admin Dose Admin Acetaminophen (Tylenol) 650 mg Q4H PRN ORAL T>100.5 08/05/18 15:15 09/04/18 15:14 Albuterol/ Ipratropium (Albuterol/ Ipratropium) 3 ml Q4H PRN HHN Shortness of Breath 08/05/18 15:15 08/10/18 15:14 Cefepime HCl 2 gm/ Dextrose 110 ml @ 220 mls/hr Q24H IV 08/06/18 11:00 08/13/18 10:59 08/06/18 11:45 Heparin Sodium (Porcine) (Heparin 5000 units/ml) 5,000 units EVERY 12 HOURS SUBQ 08/05/18 21:00 09/04/18 20:59 08/06/18 08:58 Morphine Sulfate (Morphine Sulfate) 2 mg Q4H PRN IVP Moderate Pain (Pain Scale 4-6) 08/05/18 15:15 08/12/18 15:14 Ondansetron HCl (Zofran) 4 mg Q6H PRN IVP Nausea & Vomiting 08/05/18 15:15 09/04/18 15:14 Phenazopyridine HCl (Pyridium) 100 mg DAILYPRN PRN ORAL dysuria 08/05/18 15:15 09/04/18 15:14 Polyethylene Glycol (Miralax) 17 gm DAILYPRN PRN ORAL Constipation 08/05/18 15:15 09/04/18 15:14 Temazepam (Restoril) 15 mg HSPRN PRN ORAL Insomnia 08/05/18 21:00 08/12/18 20:59 Vancomycin HCl (Vanco rx to dose) 1 ea DAILY PRN MISC per rx protocol 08/05/18 21:30 09/04/18 21:29 Vancomycin HCl 750 mg/Sodium Chloride 275 ml @ 183.333 mls/hr Q24H IVPB 08/06/18 22:00 08/11/18 21:59 Gina Rodriguez MD Aug 06, 2018 14:55
--- NOTE | 2018-08-06 15:00 | General Progress Note ---
Assessment/Plan Problem List: (1) Acute encephalopathy ICD Codes: G93.40 - Encephalopathy, unspecified SNOMED: 09271457, 731568603 (2) UTI (urinary tract infection) ICD Codes: N39.0 - UTI (urinary tract infection) SNOMED: 29538699 (3) Altered mental status ICD Codes: R41.82 - Altered mental status, unspecified SNOMED: 861684869 Status: unchanged Assessment/Plan: pt diet abx cbc bmp am Subjective Constitutional: Reports: weakness Allergies: Coded Allergies: No Known Allergies (Unverified , 08/05/18) All Systems: reviewed and negative except above Subjective calm in bed sl confused Objective Last 24 Hour Vital Signs Date Time Temp Pulse Resp B/P (MAP) Pulse Ox O2 Delivery O2 Flow Rate FiO2 08/06/18 12:00 97.5 65 20 126/89 (101) 99 08/06/18 08:00 97.6 66 19 120/95 (103) 98 08/06/18 07:53 77 18 96 Room Air 21 08/06/18 04:00 97.0 62 20 118/96 (103) 97 08/06/18 00:00 97.3 62 18 119/60 (79) 96 08/05/18 22:06 Room Air 08/05/18 20:00 97.8 62 20 152/85 (107) 95 08/05/18 18:20 98.2 72 18 160/91 (114) 98 08/05/18 18:07 97.9 68 18 140/99 97 Room Air 08/05/18 18:01 68 18 140/99 97 Room Air 08/05/18 17:31 63 26 120/82 97 Room Air 08/05/18 15:30 64 18 Room Air 08/05/18 15:30 64 17 187/70 98 Room Air Intake and Output 08/05/18 08/06/18 18:59 06:59 Intake Total 385.000 ml Balance 385.000 ml Intake IV Total 385.000 ml # Voids 1 Laboratory Tests 08/05/18 15:30: White Blood Count 5.7, Red Blood Count 4.37L, Hemoglobin 13.7L, Hematocrit 39.5L , Mean Corpuscular Volume 90, Mean Corpuscular Hemoglobin 31.3H, Mean Corpuscular Hemoglobin Concent 34.6, Red Cell Distribution Width 13.0, Platelet Count 106L, Mean Platelet Volume 9.5, Neutrophils (%) (Auto) 46.5, Lymphocytes ( %) (Auto) 42.2, Monocytes (%) (Auto) 8.2, Eosinophils (%) (Auto) 2.4, Basophils (%) (Auto) 0.7, Sodium Level 141, Potassium Level 4.4, Chloride Level 105, Carbon Dioxide Level 27, Anion Gap 9, Blood Urea Nitrogen 19H, Creatinine 0.9, Estimat Glomerular Filtration Rate , Glucose Level 108H, Calcium Level 9.3, Total Bilirubin 0.9, Aspartate Amino Transf (AST/SGOT) 18, Alanine Aminotransferase (ALT/SGPT) 14, Alkaline Phosphatase 93, Total Creatine Kinase 70, Creatine Kinase MB 1.5, Creatine Kinase MB Relative Index 2.1, Troponin I 0.006, Total Protein 7.0, Albumin 3.9, Globulin 3.1, Albumin/Globulin Ratio 1.3 08/05/18 15:45: Urine Color Pale yellow, Urine Appearance Clear, Urine pH 6.5, Urine Specific [place] 1.010, Urine Protein Negative, Urine Glucose (UA) Negative, Urine Ketones Negative, Urine Blood Negative, Urine Nitrite Negative, Urine Bilirubin Negative, Urine Urobilinogen 1H, Urine Leukocyte Esterase Negative, Urine RBC 0- 2H, Urine WBC 0, Urine Squamous Epithelial Cells Occasional, Urine Bacteria Occasional 08/06/18 00:00: Urine Color Yellow, Urine Appearance Clear, Urine pH 5, Urine Specific [place] 1.015, Urine Protein Negative, Urine Glucose (UA) Negative, Urine Ketones Negative, Urine Blood Negative, Urine Nitrite Negative, Urine Bilirubin Negative , Urine Urobilinogen Normal, Urine Leukocyte Esterase Negative 08/06/18 09:26: White Blood Count 5.1, Red Blood Count 4.23L, Hemoglobin 13.4L, Hematocrit 39.4L , Mean Corpuscular Volume 93, Mean Corpuscular Hemoglobin 31.8H, Mean Corpuscular Hemoglobin Concent 34.1, Red Cell Distribution Width 12.5, Platelet Count 103L, Mean Platelet Volume 11.1H, Neutrophils (%) (Auto) 58.0, Lymphocytes (%) (Auto) 29.8, Monocytes (%) (Auto) 9.0, Eosinophils (%) (Auto) 2.0, Basophils (%) (Auto) 1.3, Sodium Level 141, Potassium Level 3.8, Chloride Level 106, Carbon Dioxide Level 25, Anion Gap 10, Blood Urea Nitrogen 21H, Creatinine 1.0, Estimat Glomerular Filtration Rate , Glucose Level 140H, Calcium Level 8.9, Total Bilirubin 0.8, Aspartate Amino Transf (AST/SGOT) 16, Alanine Aminotransferase (ALT/SGPT) 14, Alkaline Phosphatase 87, Total Protein 6.4, Albumin 3.5, Globulin 2.9, Albumin/Globulin Ratio 1.2 Height (Feet): 5 Height (Inches): 5.00 Weight (Pounds): 140 General Appearance: lethargic EENT: normal ENT inspection Neck: normal alignment Cardiovascular: normal peripheral pulses, normal rate, regular rhythm Respiratory/Chest: chest wall non-tender, lungs clear, normal breath sounds Abdomen: normal bowel sounds, non tender, soft Extremities: normal inspection Edema: no edema noted Arm (L), no edema noted Arm (R), no edema noted Leg (L), no edema noted Leg (R), no edema noted Pedal (L), no edema noted Pedal (R), no edema noted Generalized Neurologic: motor weakness Skin: normal pigmentation, warm/dry Wilmer Chapin DO Aug 06, 2018 15:00
--- NOTE | 2018-08-06 15:48 | NUR ---
CASE MANAGEMENT: INITIAL REVIEW 88 YO M PRESENTED TO OUR ED FROM HOME CC: ABNORMAL BEHAVIOR. PMHx: SCHIZO. HERNIA. ANXIETY. SI:AMS. UTI. T 97.9 HR 56 RR 18 B/P 166/69 SATS 95% ON RA BUN 19 GLU 108 IS: CXR (Impression: No definite acute process) PATIENT ADMITTED TO MED/SURG 08/05/2018 @ 1558 DCP: PATIENT TO BE DISCHARGED TO HOME ONCE MEDICALLY CLEARED. PLAN OF CARE: VENOUS DUPLEX NEURO EVAL Addendum: 08/07/18 at 0941 by Analilia Beauchamp CM INTERQUAL
[2018-08-06 16:00] VITALS: BP 122/81
[2018-08-06] MEDS ORDERED: Tubing IV Secondary IV ONE (17:43)
[2018-08-06] MEDS ORDERED: NS 275ml ONE (17:43)
--- NOTE | 2018-08-06 19:43 | NUR ---
HAND-OFF: Report given to LEXIS LAGUERRE.
--- NOTE | 2018-08-06 19:53 | NUR ---
NURSE NOTES: Received report from LEXIS Tang. Patient is awake lying semi-perry's; resting comfortably. No signs of acute distress noted; denies pain at this time. AOx2-3; able to make needs known with periods of forgetfulness. Primarily Farsi speaking. Ambulates with walker and cane. Checked IV site; patent and flushed. No erythema, bleeding, or infiltration noted. Bed at lowest position, brakes on, siderails up x3. Call light within reach.
[2018-08-06 20:00] VITALS: BP 153/89
[2018-08-06] MEDS: Vancomycin 750mg/NS 275ml IVPB SCH ×2 (21:19)
[2018-08-07] VITALS: BP 157/92
--- NOTE | 2018-08-07 03:00 | Consultation ---
DATE OF CONSULTATION: 08/06/2018 NOTE: "VERY POOR AUDIO QUALITY" CONSULTING PHYSICIAN: Ethel Cavazos M.D. REFERRING PHYSICIAN: Wilmer Chapin D.O. HISTORY OF PRESENT ILLNESS: This is an 88-year-old male patient, who came to the hospital with altered mental status and urinary tract infection, and the patient was initially admitted through the ER, but the patient was very confused, disorganized. Apparently, his cognition had declined below his baseline. He was brought in because of weakness and confusion, but essentially the patient was brought in from his apartment and he was getting weaker and more confused in the last few days. He had urinary tract infection, dysuria, and this patient is very confused and disorganized. The patient could not figure out why he was in the hospital, in the hospital, confused, only oriented x2, so that is why, daily psychiatric consultation was requested to apparently stabilize this patient's mood and reduce confusion, disorganized thought process, and mood lability. PAST MEDICAL HISTORY: He has urinary tract infection and neuropathy. ALLERGIES: No known drug allergies. PSYCHOTROPIC MEDICATIONS ON ADMISSION: According to chart review, this patient is not currently on any psychotropic medications. SUBSTANCE ABUSE HISTORY: He denies. No known history of any drug and alcohol use. PAIN ASSESSMENT: 0/10. DEVELOPMENTAL PROBLEMS: Denies. FAMILY PSYCHIATRIC HISTORY: Denies. PSYCHIATRIC HISTORY: Major depressive disorder, severe, recurrent, without psychotic features. No previous psychiatric admissions. STRENGTHS: He is motivated to get better and has a place to live. WEAKNESSES: He is impulsive with minimal support system. MENTAL STATUS EXAMINATION: This is an 88-year-old male. Appearance is disheveled. Attitude, irritable and agitated. Affect, guarded and restricted. Intellect poor. Mood depressed and anxious. Motor activity, psychomotor agitation. Attention span is poor. Orientation x2. Speech is low volume, slurred. Thought process, disorganized and illogical. Insight and judgment is poor. DIAGNOSES: 1. Major depressive disorder, mild, recurrent with psychotic features, rule out dementia with psychosis. There is no secondary diagnosis . 2. Medical problems, this patient has possible urinary tract infection, acute encephalopathy. 3. Psychosocial stressors, financial. PLAN: Plan for this patient is to treat him with a medication regimen of Namenda 5 mg twice a day to prevent any further decline in his cognition. Continue on Ativan as needed to reduce anxiety and agitation. Provided him with 20 minutes of reality-based supportive psychotherapy and encouraged to interact appropriately with staff. Seen and assessed in his room. A 20 minutes of cognitive behavioral therapy provided to help him identify his automatic negative and help him to convert his negative thoughts to more positive thoughts to reduce depression, anxiety, and mood lability. Chart reviewed. Discussed with staff. Ethel Cavazos M.D. DR: PANDA JOB#: [id number] CC:
--- NOTE | 2018-08-07 03:49 | NUR ---
NURSE NOTES: Patient is awake lying semi-perry's; confused. Reoriented the patient.
[2018-08-07 04:00] VITALS: BP 165/90
--- NOTE | 2018-08-07 05:04 | NUR ---
NURSE NOTES: Attempted to recheck blood pressure, but patient is adamantly refusing. Risks and benefits explained; patient is confused and still refusing to have his blood pressure checked.
--- NOTE | 2018-08-07 05:14 | NUR ---
NURSE NOTES: Patient strongly refuses lab draw by kicking and being physically resistive. Risks and benefits explained; still refusing.
--- NOTE | 2018-08-07 06:30 | Consultation ---
DATE OF CONSULTATION: 08/06/2018 PSYCHOTHERAPY CONSULTATION PROGRESS NOTE CONSULTING PHYSICIAN: Reji Sin M.D. TREATING ATTENDING PHYSICIAN: Wilmer Chapin D.O. HISTORY OF PRESENT ILLNESS: The patient is an 88-year-old male patient. This patient is brought into the hospital with altered mental status and possible UTI. The patient has been extremely confused, disorganized, and for these reasons, he was referred for psychotherapeutic services. When this clinician assessed the patient, the patient was able to communicate, however, he is very altered in his mental status and repeating words. He states that he does not know why he is in the hospital. He states that he could not remember why he is there. The patient has been restless, weak, and unable to care for his basic needs. At this time, the patient has very poor insight into his current medical condition. The patient is unable to make medical decisions for himself at this time as he is not able to accept his choice because he lacks capacity and he is unable to communicate any treatment for it as he does not and cannot retain his treatment. He lacks understanding of his diagnostic treatment as well as he does not have any capacity at this time to as well as appreciation of his current treatment and unable to logically and rationally explain his current treatment or accepting choice. At this time, he is still confused, disorganized, mumbling current treatment. The patient does have a history of anxiety as well. At this time, there is no indication of suicidal or homicidal thoughts of ideation. There is no indication of auditory or visual hallucinations. PAST MEDICAL HISTORY: History of prostate cancer. ALLERGIES: The patient has no known drug allergies. SUBSTANCE ABUSE HISTORY: There is no indication of alcohol use, illicit drug use, and illicit substance use. PAST PSYCHIATRIC HISTORY: The patient has a history of anxiety. SOCIAL HISTORY: The patient is an 88-year-old male patient. . Financially sustained through [employer]. MENTAL STATUS EXAMINATION: Alert and oriented to person. His mood is anxious. Affect is congruent. Thought process, disorganized with poor attention and concentration. Poor insight, judgment, and impulse control. The patient lacks capacity to make decisions. DIAGNOSES: Generalized anxiety disorder. PLAN: I assessed this patient. I provided the patient with: 1. Reality orientation, which is focused on improving cognitive function of the patient who is confused and disorganized, oriented to person, place, time, and situation. 2. Providing the patient with supportive psychotherapy, which is focused on identifying . The patient at this time is very confused and disorganized, medication compliance with positive coping skills and . This clinician has reviewed the patient's chart. Discussed treatment with treatment team. Psychotherapy provided to this patient, 50 minutes. Reji Sin PsyD. DR: RAFIQ JOB#: [id number] CC:
--- NOTE | 2018-08-07 07:25 | NUR ---
HAND-OFF: Report given to LEXIS Marquez. Patient is awake sitting on the bed eating breakfast; disoriented. In stable condition otherwise.
[2018-08-07 08:00] VITALS: BP 150/88
--- NOTE | 2018-08-07 08:07 | NUR ---
NURSE NOTES: Patient alert to name,respirations unlabored,patient assisted to bathroom,voidied,back to bed with assist using walker.Assist with breakfast.HOB elevated.Bed alarm on,call light within reach.
[2018-08-07 09:28] LABS: BASOPHILS % (AUTO) 1.5 % (0.0-2.0); EOSINOPHILS % (AUTO) 1.1 % (0.0-3.0); HEMATOCRIT 41.9 % (42.0-52.0); HEMOGLOBIN 14.1 G/DL (14.2-18.0); LYMPHOCYTES % (AUTO) 32.4 % (20.0-45.0); MEAN CORPUSCULAR VOLUME 93 FL (80-99); MONOCYTES % (AUTO) 8.4 % (1.0-10.0); NEUTROPHILS % (AUTO) 56.7 % (45.0-75.0); PLATELET COUNT 110 K/UL (150-450); RED BLOOD COUNT 4.53 M/UL (4.70-6.10); RED CELL DISTRIBUTION WIDTH 12.5 % (11.6-14.8)
[2018-08-07 09:38] LABS: ALANINE AMINOTRANSFERASE 16 U/L (12-78); ALBUMIN 3.3 G/DL (3.4-5.0); ALKALINE PHOSPHATASE 84 U/L (46-116); ANION GAP 11 mmol/L (5-15); ASPARTATE AMINO TRANSFERASE 18 U/L (15-37); BILIRUBIN,TOTAL 0.8 MG/DL (0.2-1.0); BLOOD UREA NITROGEN 21 mg/dL (7-18); CALCIUM 9.1 MG/DL (8.5-10.1); CARBON DIOXIDE 24 MMOL/L (21-32); CHLORIDE 108 MMOL/L (98-107); PHOSPHORUS 2.7 MG/DL (2.5-4.9); POTASSIUM 3.9 MMOL/L (3.5-5.1); SODIUM 143 MMOL/L (136-145)
[2018-08-07] MEDS: Heparin 5000 units/ml inj SUBQ SCH ×2 (10:12→20:44)
--- NOTE | 2018-08-07 11:06 | Infectious Diseases Prog Note ---
Assessment/Plan Assessment/Plan 88 yo male with PMHx of Parkinsons, Schizophrenia and anxiety who was brought to the ED by family for increased confusion. UTI UA but hx of confusion and dysuria f/u UCx Parkinsons Schizophrenia Anxiety PLAN: - Continue Cefepime #3 and Vancomycin #3 for now pending Cx Will Stop abx tomorrow if stable Ok to stop Abx if patient discharged - Monitor CBC and Temps - f/u Cultures Thank you for this consult. We will continue to follow the patient during this hospitalization. Subjective Allergies: Coded Allergies: No Known Allergies (Unverified , 08/05/18) Subjective KAREN Afebrile No Leukocytosis Up and Walking Objective Vital Signs Last 24 Hour Vital Signs Date Time Temp Pulse Resp B/P (MAP) Pulse Ox O2 Delivery O2 Flow Rate FiO2 08/07/18 10:39 Room Air 08/07/18 08:26 63 16 95 Room Air 21 08/07/18 08:00 97.9 87 18 150/88 (108) 99 08/07/18 04:00 97.4 88 18 165/90 (115) 99 08/07/18 00:00 97.1 66 18 157/92 (113) 93 08/06/18 21:00 Room Air 08/06/18 20:00 97.9 59 18 153/89 (110) 98 08/06/18 19:58 74 18 96 Room Air 21 08/06/18 16:00 97.5 68 19 122/81 (95) 98 08/06/18 12:00 97.5 65 20 126/89 (101) 99 Height (Feet): 5 Height (Inches): 5.00 Weight (Pounds): 140 Objective Gen: NAD HEENT: NCAT, MMM, EOMI LUNGS: CTAB, No W CARDS: RRR, S1, S2, No M/R/G, ABD: Soft, NT, ND NEURO: A/O x 1, Strength and Sensation Grossly intact PSYCH: Normal mood and affect SKIN: Warm/dry, No rashes Microbiology Date/Time Source Procedure Growth Status 08/05/18 15:45 Blood Blood Culture - Preliminary NO GROWTH AFTER 24 HOURS Resulted 08/05/18 15:30 Blood Blood Culture - Preliminary NO GROWTH AFTER 24 HOURS Resulted 08/06/18 00:00 Indwelling Cath Urine Culture - Preliminary Gram Positive Cocci Resulted Laboratory Tests Test 08/07/18 09:00 White Blood Count 6.0 K/UL (4.8-10.8) Red Blood Count 4.53 M/UL (4.70-6.10) L Hemoglobin 14.1 G/DL (14.2-18.0) L Hematocrit 41.9 % (42.0-52.0) L Mean Corpuscular Volume 93 FL (80-99) Mean Corpuscular Hemoglobin 31.1 PG (27.0-31.0) H Mean Corpuscular Hemoglobin Concent 33.6 G/DL (32.0-36.0) Red Cell Distribution Width 12.5 % (11.6-14.8) Platelet Count 110 K/UL (150-450) L Mean Platelet Volume 8.8 FL (6.5-10.1) Neutrophils (%) (Auto) 56.7 % (45.0-75.0) Lymphocytes (%) (Auto) 32.4 % (20.0-45.0) Monocytes (%) (Auto) 8.4 % (1.0-10.0) Eosinophils (%) (Auto) 1.1 % (0.0-3.0) Basophils (%) (Auto) 1.5 % (0.0-2.0) Erythrocyte Sedimentation Rate Pending Sodium Level 143 MMOL/L (136-145) Potassium Level 3.9 MMOL/L (3.5-5.1) Chloride Level 108 MMOL/L (98-107) H Carbon Dioxide Level 24 MMOL/L (21-32) Anion Gap 11 mmol/L (5-15) Blood Urea Nitrogen 21 mg/dL (7-18) H Creatinine 1.0 MG/DL (0.55-1.30) Estimat Glomerular Filtration Rate mL/min (>60) Glucose Level 116 MG/DL (74-106) H Calcium Level 9.1 MG/DL (8.5-10.1) Phosphorus Level 2.7 MG/DL (2.5-4.9) Magnesium Level 2.0 MG/DL (1.8-2.4) Total Bilirubin 0.8 MG/DL (0.2-1.0) Aspartate Amino Transf (AST/SGOT) 18 U/L (15-37) Alanine Aminotransferase (ALT/SGPT) 16 U/L (12-78) Alkaline Phosphatase 84 U/L (46-116) C-Reactive Protein, Quantitative < 0.4 mg/dL (0.00-0.90) Total Protein 6.6 G/DL (6.4-8.2) Albumin 3.3 G/DL (3.4-5.0) L Globulin 3.3 g/dL Albumin/Globulin Ratio 1.0 (1.0-2.7) Current Medications Medications (Trade) Dose Ordered Sig/Cosme Route PRN Reason Start Time Stop Time Status Last Admin Dose Admin Acetaminophen (Tylenol) 650 mg Q4H PRN ORAL T>100.5 08/05/18 15:15 09/04/18 15:14 Albuterol/ Ipratropium (Albuterol/ Ipratropium) 3 ml Q4H PRN HHN Shortness of Breath 08/05/18 15:15 08/10/18 15:14 Cefepime HCl 2 gm/ Dextrose 110 ml @ 220 mls/hr Q24H IV 08/06/18 11:00 08/13/18 10:59 08/06/18 11:45 Heparin Sodium (Porcine) (Heparin 5000 units/ml) 5,000 units EVERY 12 HOURS SUBQ 08/05/18 21:00 09/04/18 20:59 08/07/18 10:12 Morphine Sulfate (Morphine Sulfate) 2 mg Q4H PRN IVP Moderate Pain (Pain Scale 4-6) 08/05/18 15:15 08/12/18 15:14 Ondansetron HCl (Zofran) 4 mg Q6H PRN IVP Nausea & Vomiting 08/05/18 15:15 09/04/18 15:14 Phenazopyridine HCl (Pyridium) 100 mg DAILYPRN PRN ORAL dysuria 08/05/18 15:15 09/04/18 15:14 Polyethylene Glycol (Miralax) 17 gm DAILYPRN PRN ORAL Constipation 08/05/18 15:15 09/04/18 15:14 Temazepam (Restoril) 15 mg HSPRN PRN ORAL Insomnia 08/05/18 21:00 08/12/18 20:59 Vancomycin HCl (Vanco rx to dose) 1 ea DAILY PRN MISC per rx protocol 08/05/18 21:30 7/18/19 21:29 Vancomycin HCl 750 mg/Sodium Chloride 275 ml @ 183.333 mls/hr Q24H IVPB 08/06/18 22:00 08/11/18 21:59 08/06/18 21:19 Jesús Subramanian MD Aug 07, 2018 11:06
[2018-08-07] MEDS: Cefepime HCl 2 GM in D5W 110 ML IV SCH (11:30)
--- NOTE | 2018-08-07 11:44 | General Progress Note ---
Assessment/Plan Problem List: (1) Acute encephalopathy ICD Codes: G93.40 - Encephalopathy, unspecified SNOMED: 32559107, 886919912 (2) UTI (urinary tract infection) ICD Codes: N39.0 - UTI (urinary tract infection) SNOMED: 00166369 (3) Altered mental status ICD Codes: R41.82 - Altered mental status, unspecified SNOMED: 874029748 Status: stable, progressing Assessment/Plan: pt diet abx cbc bmp am dc plan to snf if clear Subjective Constitutional: Reports: weakness Allergies: Coded Allergies: No Known Allergies (Unverified , 08/05/18) All Systems: reviewed and negative except above Subjective calm in bed sl confused Objective Last 24 Hour Vital Signs Date Time Temp Pulse Resp B/P (MAP) Pulse Ox O2 Delivery O2 Flow Rate FiO2 08/07/18 10:39 Room Air 08/07/18 08:26 63 16 95 Room Air 21 08/07/18 08:00 97.9 87 18 150/88 (108) 99 08/07/18 04:00 97.4 88 18 165/90 (115) 99 08/07/18 00:00 97.1 66 18 157/92 (113) 93 08/06/18 21:00 Room Air 08/06/18 20:00 97.9 59 18 153/89 (110) 98 08/06/18 19:58 74 18 96 Room Air 21 08/06/18 16:00 97.5 68 19 122/81 (95) 98 08/06/18 12:00 97.5 65 20 126/89 (101) 99 Intake and Output 08/06/18 08/07/18 18:59 06:59 Intake Total 110 ml 515 ml Balance 110 ml 515 ml Intake Oral 240 ml IV Total 110 ml 275 ml # Voids 3 Laboratory Tests 08/07/18 09:00: White Blood Count 6.0, Red Blood Count 4.53L, Hemoglobin 14.1L, Hematocrit 41.9L , Mean Corpuscular Volume 93, Mean Corpuscular Hemoglobin 31.1H, Mean Corpuscular Hemoglobin Concent 33.6, Red Cell Distribution Width 12.5, Platelet Count 110L, Mean Platelet Volume 8.8, Neutrophils (%) (Auto) 56.7, Lymphocytes ( %) (Auto) 32.4, Monocytes (%) (Auto) 8.4, Eosinophils (%) (Auto) 1.1, Basophils (%) (Auto) 1.5, Erythrocyte Sedimentation Rate 6, Sodium Level 143, Potassium Level 3.9, Chloride Level 108H, Carbon Dioxide Level 24, Anion Gap 11, Blood Urea Nitrogen 21H, Creatinine 1.0, Estimat Glomerular Filtration Rate , Glucose Level 116H, Calcium Level 9.1, Phosphorus Level 2.7, Magnesium Level 2.0, Total Bilirubin 0.8, Aspartate Amino Transf (AST/SGOT) 18, Alanine Aminotransferase ( ALT/SGPT) 16, Alkaline Phosphatase 84, C-Reactive Protein, Quantitative < 0.4, Total Protein 6.6, Albumin 3.3L, Globulin 3.3, Albumin/Globulin Ratio 1.0 Height (Feet): 5 Height (Inches): 5.00 Weight (Pounds): 140 General Appearance: lethargic, confused EENT: normal ENT inspection Neck: normal alignment Cardiovascular: normal peripheral pulses, normal rate, regular rhythm Respiratory/Chest: chest wall non-tender, lungs clear, normal breath sounds Abdomen: normal bowel sounds, non tender, soft Extremities: normal inspection Edema: no edema noted Arm (L), no edema noted Arm (R), no edema noted Leg (L), no edema noted Leg (R), no edema noted Pedal (L), no edema noted Pedal (R), no edema noted Generalized Neurologic: motor weakness Skin: normal pigmentation, warm/dry Wilmer Chapin DO Aug 07, 2018 11:44
[2018-08-07 12:00] VITALS: BP 144/82
--- NOTE | 2018-08-07 13:00 | Pulmonology Progress Note ---
Assessment/Plan Problems: (1) Acute encephalopathy (2) UTI (urinary tract infection) (3) Schizophrenia (4) Parkinson disease Assessment/Plan doing better just ate lunch all reivewed f/u wbc ID evaluation appreciated pt/ot venous doppler of legs neuro evaluation Subjective ROS Limited/Unobtainable: No Constitutional: Reports: no symptoms HEENT: Repors: no symptoms Allergies: Coded Allergies: No Known Allergies (Unverified , 08/05/18) Objective Last 24 Hour Vital Signs Date Time Temp Pulse Resp B/P (MAP) Pulse Ox O2 Delivery O2 Flow Rate FiO2 08/07/18 12:00 98.1 84 18 144/82 (102) 08/07/18 10:39 Room Air 08/07/18 08:26 63 16 95 Room Air 21 08/07/18 08:00 97.9 87 18 150/88 (108) 99 08/07/18 04:00 97.4 88 18 165/90 (115) 99 08/07/18 00:00 97.1 66 18 157/92 (113) 93 08/06/18 21:00 Room Air 08/06/18 20:00 97.9 59 18 153/89 (110) 98 08/06/18 19:58 74 18 96 Room Air 21 08/06/18 16:00 97.5 68 19 122/81 (95) 98 Intake and Output 08/06/18 08/07/18 18:59 06:59 Intake Total 110 ml 515 ml Balance 110 ml 515 ml Intake Oral 240 ml IV Total 110 ml 275 ml # Voids 3 Objective General Appearance: WD/WN HEENT: normocephalic, atraumatic Respiratory/Chest: chest wall non-tender, lungs clear Cardiovascular: normal peripheral pulses, normal rate Abdomen: normal bowel sounds, soft, non tender Genitourinary: normal external genitalia Extremities: no clubbing Skin: no rash General Appearance: WD/WN Microbiology Date/Time Source Procedure Growth Status 08/05/18 15:45 Blood Blood Culture - Preliminary NO GROWTH AFTER 24 HOURS Resulted 08/05/18 15:30 Blood Blood Culture - Preliminary NO GROWTH AFTER 24 HOURS Resulted 08/06/18 00:00 Indwelling Cath Urine Culture - Preliminary Gram Positive Cocci Resulted Laboratory Tests 08/07/18 09:00: White Blood Count 6.0, Red Blood Count 4.53L, Hemoglobin 14.1L, Hematocrit 41.9L , Mean Corpuscular Volume 93, Mean Corpuscular Hemoglobin 31.1H, Mean Corpuscular Hemoglobin Concent 33.6, Red Cell Distribution Width 12.5, Platelet Count 110L, Mean Platelet Volume 8.8, Neutrophils (%) (Auto) 56.7, Lymphocytes ( %) (Auto) 32.4, Monocytes (%) (Auto) 8.4, Eosinophils (%) (Auto) 1.1, Basophils (%) (Auto) 1.5, Erythrocyte Sedimentation Rate 6, Sodium Level 143, Potassium Level 3.9, Chloride Level 108H, Carbon Dioxide Level 24, Anion Gap 11, Blood Urea Nitrogen 21H, Creatinine 1.0, Estimat Glomerular Filtration Rate , Glucose Level 116H, Calcium Level 9.1, Phosphorus Level 2.7, Magnesium Level 2.0, Total Bilirubin 0.8, Aspartate Amino Transf (AST/SGOT) 18, Alanine Aminotransferase ( ALT/SGPT) 16, Alkaline Phosphatase 84, C-Reactive Protein, Quantitative < 0.4, Total Protein 6.6, Albumin 3.3L, Globulin 3.3, Albumin/Globulin Ratio 1.0 Current Medications Medications (Trade) Dose Ordered Sig/Cosme Route PRN Reason Start Time Stop Time Status Last Admin Dose Admin Acetaminophen (Tylenol) 650 mg Q4H PRN ORAL T>100.5 08/05/18 15:15 09/04/18 15:14 Albuterol/ Ipratropium (Albuterol/ Ipratropium) 3 ml Q4H PRN HHN Shortness of Breath 08/05/18 15:15 08/10/18 15:14 Cefepime HCl 2 gm/ Dextrose 110 ml @ 220 mls/hr Q24H IV 08/06/18 11:00 08/13/18 10:59 08/07/18 11:30 Heparin Sodium (Porcine) (Heparin 5000 units/ml) 5,000 units EVERY 12 HOURS SUBQ 08/05/18 21:00 09/04/18 20:59 08/07/18 10:12 Morphine Sulfate (Morphine Sulfate) 2 mg Q4H PRN IVP Moderate Pain (Pain Scale 4-6) 08/05/18 15:15 08/12/18 15:14 Ondansetron HCl (Zofran) 4 mg Q6H PRN IVP Nausea & Vomiting 08/05/18 15:15 09/04/18 15:14 Phenazopyridine HCl (Pyridium) 100 mg DAILYPRN PRN ORAL dysuria 08/05/18 15:15 09/04/18 15:14 Polyethylene Glycol (Miralax) 17 gm DAILYPRN PRN ORAL Constipation 08/05/18 15:15 09/04/18 15:14 Temazepam (Restoril) 15 mg HSPRN PRN ORAL Insomnia 08/05/18 21:00 08/12/18 20:59 Vancomycin HCl (Vanco rx to dose) 1 ea DAILY PRN MISC per rx protocol 08/05/18 21:30 09/04/18 21:29 Vancomycin HCl 750 mg/Sodium Chloride 275 ml @ 183.333 mls/hr Q24H IVPB 08/06/18 22:00 08/11/18 21:59 08/06/18 21:19 Gina Rodriguez MD Aug 07, 2018 13:00
[2018-08-07 16:00] VITALS: BP 140/88
--- NOTE | 2018-08-07 16:15 | Progress Note ---
DATE: 08/07/2018 SUBJECTIVE: This is an 88-year-old patient with altered mental status and urinary tract infection, but this patient continues to have altered mental status, confusion, and disorganized thought process worsened by stress of his medical illness. The patient continues to have some confusion, some disorganized thought process, and decline in cognition below his baseline. That is why, his attending physician has requested daily psychiatric consultation to help with this patient to improve his cognition below his baseline. MENTAL STATUS EXAMINATION: This is an 88-year-old male. Appearance is disheveled. Attitude, irritable and agitated. Affect, guarded and restricted. Intellect poor. Mood, depressed and anxious. Motor activity, psychomotor agitation. Attention span is poor. Orientation x2. Speech is low volume, slurred. Thought process, disorganized and illogical. Insight and judgment is poor. DIAGNOSIS: Major depressive disorder, mild, recurrent with psychotic features, rule out dementia with psychosis. PLAN: Treat the patient with Namenda 5 mg daily to prevent any further decline in his cognition. Provide him with 20 minutes of insight-oriented psychotherapy to help and have improved insight into his behavior, so he has better impulse control on the unit to improve his cognition overall . 20 minutes of insight-oriented psychotherapy. Chart reviewed. Discussed with staff. The patient is seen and assessed at bedside. Ethel Cavazos M.D. DR: STEPHANIE JOB#: [id number] CC:
--- NOTE | 2018-08-07 16:44 | NUR ---
DISCHARGE PLANNING: NOTE CLINICALS FAXED TO [facility] FOR REVIEW Addendum: 08/08/18 at 1109 by Analilia Beauchamp CM [facility] IS ACCEPTING THIS PATIENT TO ROOM [facility]
--- NOTE | 2018-08-07 18:00 | NUR ---
NURSE NOTES: Patient resting,patient has poor appetite,patient resistant to care.Bed alarm is on,call light within reach.
--- NOTE | 2018-08-07 19:26 | Cardiology Report ---
APPROVED REPORT EKG Measurement Heart [id number] Atrial rhythm Possible paced beats Right bundle branch block Left anterior fascicular block Bifascicular block Abnormal ECG
--- NOTE | 2018-08-07 19:55 | NUR ---
HAND-OFF: Report given to Kamila PIRES.
--- NOTE | 2018-08-07 19:57 | NUR ---
NURSE NOTES: Received report from LEXIS Acosta. Patient was in bed, awake and alertx3. Patient's daughter was at bedside conversing with the patient. No respiratory distress. HOB elevated. Right AC IV intact. Bed in lowest position with 2 side rails up. Bed alarm on. Call light is within easy reach. Will continue to monitor.
[2018-08-07 20:00] VITALS: BP 169/92
[2018-08-07] MEDS: Vancomycin 750mg/NS 275ml IVPB SCH ×2 (21:39)
[2018-08-08] VITALS: BP 124/64
[2018-08-08 04:00] VITALS: BP 120/63
--- NOTE | 2018-08-08 07:23 | NUR ---
HAND-OFF: Report given to LEXIS Marquez.
--- NOTE | 2018-08-08 07:45 | NUR ---
NURSE NOTES: Patient is awake and alert to name respirations unlabored. Assist patient with breakfast,swallowing without difficulty' HOB is elevated..Bed alarm is on,call light within reach.
[2018-08-08 08:51] LABS: BASOPHILS % (AUTO) 1.9 % (0.0-2.0); EOSINOPHILS % (AUTO) 2.7 % (0.0-3.0); HEMATOCRIT 42.5 % (42.0-52.0); HEMOGLOBIN 14.4 G/DL (14.2-18.0); LYMPHOCYTES % (AUTO) 38.7 % (20.0-45.0); MEAN CORPUSCULAR VOLUME 94 FL (80-99); MONOCYTES % (AUTO) 9.7 % (1.0-10.0); NEUTROPHILS % (AUTO) 46.9 % (45.0-75.0); PLATELET COUNT 106 K/UL (150-450); RED BLOOD COUNT 4.52 M/UL (4.70-6.10); RED CELL DISTRIBUTION WIDTH 12.8 % (11.6-14.8)
[2018-08-08 09:02] LABS: ANION GAP 7 mmol/L (5-15); BLOOD UREA NITROGEN 22 mg/dL (7-18); CALCIUM 9.3 MG/DL (8.5-10.1); CARBON DIOXIDE 29 MMOL/L (21-32); CHLORIDE 108 MMOL/L (98-107); POTASSIUM 3.8 MMOL/L (3.5-5.1); SODIUM 144 MMOL/L (136-145)
[2018-08-08] MEDS: Heparin 5000 units/ml inj SUBQ SCH (10:40)
[2018-08-08] MEDS: Cefepime HCl 2 GM in D5W 110 ML IV SCH (11:47)
--- NOTE | 2018-08-08 12:40 | General Progress Note ---
Assessment/Plan Problem List: (1) Acute encephalopathy ICD Codes: G93.40 - Encephalopathy, unspecified SNOMED: 39014991, 007781548 (2) UTI (urinary tract infection) ICD Codes: N39.0 - UTI (urinary tract infection) SNOMED: 93817465 (3) Altered mental status ICD Codes: R41.82 - Altered mental status, unspecified SNOMED: 702854410 Status: stable, progressing Assessment/Plan: pt diet abx dc to snf if clear Subjective Constitutional: Reports: weakness Allergies: Coded Allergies: No Known Allergies (Unverified , 08/05/18) All Systems: reviewed and negative except above Subjective calm in bed sl confused Objective Last 24 Hour Vital Signs Date Time Temp Pulse Resp B/P (MAP) Pulse Ox O2 Delivery O2 Flow Rate FiO2 08/08/18 08:29 68 18 95 Room Air 21 08/08/18 04:00 97.3 65 20 120/63 (82) 96 08/08/18 00:00 97.3 20 124/64 (84) 95 08/07/18 21:00 Room Air Room Air 08/07/18 20:38 66 18 95 Room Air 21 08/07/18 20:00 97.9 76 18 169/92 (117) 96 08/07/18 16:00 98.3 81 18 140/88 (105) 97 Intake and Output 08/07/18 08/08/18 19:00 07:00 Intake Total 640 ml 515.000 ml Balance 640 ml 515.000 ml Intake Oral 640 ml 240 ml IV Total 275.000 ml # Voids 3 2 Laboratory Tests 08/08/18 08:22: White Blood Count 5.0, Red Blood Count 4.52L, Hemoglobin 14.4, Hematocrit 42.5, Mean Corpuscular Volume 94, Mean Corpuscular Hemoglobin 31.9H, Mean Corpuscular Hemoglobin Concent 34.0, Red Cell Distribution Width 12.8, Platelet Count 106L, Mean Platelet Volume 12.0H, Neutrophils (%) (Auto) 46.9, Lymphocytes (%) (Auto) 38.7, Monocytes (%) (Auto) 9.7, Eosinophils (%) (Auto) 2.7, Basophils (%) (Auto ) 1.9, Sodium Level 144, Potassium Level 3.8, Chloride Level 108H, Carbon Dioxide Level 29, Anion Gap 7, Blood Urea Nitrogen 22H, Creatinine 1.0, Estimat Glomerular Filtration Rate , Glucose Level 134H, Calcium Level 9.3, Vancomycin Level Trough 9.9 Height (Feet): 5 Height (Inches): 5.00 Weight (Pounds): 140 General Appearance: lethargic EENT: normal ENT inspection Neck: normal alignment Cardiovascular: normal peripheral pulses, normal rate, regular rhythm Respiratory/Chest: chest wall non-tender, lungs clear, normal breath sounds Abdomen: normal bowel sounds, non tender, soft Extremities: normal inspection Edema: no edema noted Arm (L), no edema noted Arm (R), no edema noted Leg (L), no edema noted Leg (R), no edema noted Pedal (L), no edema noted Pedal (R), no edema noted Generalized Neurologic: motor weakness Skin: normal pigmentation, warm/dry Wilmer Chapin DO Aug 08, 2018 12:40
--- NOTE | 2018-08-08 12:43 | Infectious Diseases Prog Note ---
Assessment/Plan Assessment/Plan 88 yo male with PMHx of Parkinsons, Schizophrenia and anxiety who was brought to the ED by family for increased confusion. UTI UA but hx of confusion and dysuria f/u UCx Parkinsons Schizophrenia Anxiety PLAN: - Monitor off abx - 08/08/18 SP Cefepime #4 and Vancomycin #4 - Monitor CBC and Temps We will continue to follow the patient during this hospitalization. Subjective Allergies: Coded Allergies: No Known Allergies (Unverified , 08/05/18) Subjective KAREN Afebrile No Leukocytosis Objective Vital Signs Last 24 Hour Vital Signs Date Time Temp Pulse Resp B/P (MAP) Pulse Ox O2 Delivery O2 Flow Rate FiO2 08/08/18 08:29 68 18 95 Room Air 21 08/08/18 04:00 97.3 65 20 120/63 (82) 96 08/08/18 00:00 97.3 20 124/64 (84) 95 08/07/18 21:00 Room Air Room Air 08/07/18 20:38 66 18 95 Room Air 21 08/07/18 20:00 97.9 76 18 169/92 (117) 96 08/07/18 16:00 98.3 81 18 140/88 (105) 97 Height (Feet): 5 Height (Inches): 5.00 Weight (Pounds): 140 Objective Gen: NAD HEENT: NCAT, MMM, EOMI LUNGS: CTAB, No W CARDS: RRR, S1, S2, No M/R/G, ABD: Soft, NT, ND Microbiology Date/Time Source Procedure Growth Status 08/05/18 15:45 Blood Blood Culture - Preliminary NO GROWTH AFTER 24 HOURS Resulted 08/05/18 15:30 Blood Blood Culture - Preliminary NO GROWTH AFTER 24 HOURS Resulted 08/06/18 00:00 Indwelling Cath Urine Culture - Final Mixed Gram Positive Organism Complete Laboratory Tests Test 08/08/18 08:22 White Blood Count 5.0 K/UL (4.8-10.8) Red Blood Count 4.52 M/UL (4.70-6.10) L Hemoglobin 14.4 G/DL (14.2-18.0) Hematocrit 42.5 % (42.0-52.0) Mean Corpuscular Volume 94 FL (80-99) Mean Corpuscular Hemoglobin 31.9 PG (27.0-31.0) H Mean Corpuscular Hemoglobin Concent 34.0 G/DL (32.0-36.0) Red Cell Distribution Width 12.8 % (11.6-14.8) Platelet Count 106 K/UL (150-450) L Mean Platelet Volume 12.0 FL (6.5-10.1) H Neutrophils (%) (Auto) 46.9 % (45.0-75.0) Lymphocytes (%) (Auto) 38.7 % (20.0-45.0) Monocytes (%) (Auto) 9.7 % (1.0-10.0) Eosinophils (%) (Auto) 2.7 % (0.0-3.0) Basophils (%) (Auto) 1.9 % (0.0-2.0) Sodium Level 144 MMOL/L (136-145) Potassium Level 3.8 MMOL/L (3.5-5.1) Chloride Level 108 MMOL/L (98-107) H Carbon Dioxide Level 29 MMOL/L (21-32) Anion Gap 7 mmol/L (5-15) Blood Urea Nitrogen 22 mg/dL (7-18) H Creatinine 1.0 MG/DL (0.55-1.30) Estimat Glomerular Filtration Rate mL/min (>60) Glucose Level 134 MG/DL (74-106) H Calcium Level 9.3 MG/DL (8.5-10.1) Vancomycin Level Trough 9.9 ug/mL (5.0-12.0) Current Medications Medications (Trade) Dose Ordered Sig/Cosme Route PRN Reason Start Time Stop Time Status Last Admin Dose Admin Acetaminophen (Tylenol) 650 mg Q4H PRN ORAL T>100.5 08/05/18 15:15 09/04/18 15:14 Albuterol/ Ipratropium (Albuterol/ Ipratropium) 3 ml Q4H PRN HHN Shortness of Breath 08/05/18 15:15 08/10/18 15:14 Cefepime HCl 2 gm/ Dextrose 110 ml @ 220 mls/hr Q24H IV 08/06/18 11:00 08/13/18 10:59 08/08/18 11:47 Heparin Sodium (Porcine) (Heparin 5000 units/ml) 5,000 units EVERY 12 HOURS SUBQ 08/05/18 21:00 09/04/18 20:59 08/08/18 10:40 Memantine (Namenda) 5 mg DAILY ORAL 08/09/18 09:00 09/08/18 08:59 Morphine Sulfate (Morphine Sulfate) 2 mg Q4H PRN IVP Moderate Pain (Pain Scale 4-6) 08/05/18 15:15 08/12/18 15:14 Ondansetron HCl (Zofran) 4 mg Q6H PRN IVP Nausea & Vomiting 08/05/18 15:15 09/04/18 15:14 Phenazopyridine HCl (Pyridium) 100 mg DAILYPRN PRN ORAL dysuria 08/05/18 15:15 09/04/18 15:14 Polyethylene Glycol (Miralax) 17 gm DAILYPRN PRN ORAL Constipation 08/05/18 15:15 09/04/18 15:14 Temazepam (Restoril) 15 mg HSPRN PRN ORAL Insomnia 08/05/18 21:00 08/12/18 20:59 Vancomycin HCl (Vanco rx to dose) 1 ea DAILY PRN MISC per rx protocol 08/05/18 21:30 09/04/18 21:29 Vancomycin HCl 750 mg/Sodium Chloride 275 ml @ 183.333 mls/hr Q24H IVPB 08/06/18 22:00 08/11/18 21:59 08/07/18 21:39 Jesús Subramanian MD Aug 08, 2018 12:42
--- NOTE | 2018-08-08 12:51 | NUR ---
DISCHARGE DISPOSITION: PLEASE READ PATIENT TO BE DISCHARGED TO [facility] [address] T: [phone]>> CALL FOR REPORT [facility] ETA 1500 SKILLED SON JOSE LEÓN MADE AWARE OF THE DC VIA VM.
--- NOTE | 2018-08-08 13:09 | Pulmonology Progress Note ---
Assessment/Plan Problems: (1) Acute encephalopathy (2) UTI (urinary tract infection) (3) Schizophrenia (4) Parkinson disease Assessment/Plan doing better Urine culture hax mix gram positive organism just ate lunch all reivewed f/u wbc ID evaluation appreciated pt/ot venous doppler of legs neuro evaluation Subjective ROS Limited/Unobtainable: No Constitutional: Reports: no symptoms HEENT: Repors: no symptoms Respiratory: Reports: no symptoms Allergies: Coded Allergies: No Known Allergies (Unverified , 08/05/18) Objective Last 24 Hour Vital Signs Date Time Temp Pulse Resp B/P (MAP) Pulse Ox O2 Delivery O2 Flow Rate FiO2 08/08/18 08:29 68 18 95 Room Air 21 08/08/18 04:00 97.3 65 20 120/63 (82) 96 08/08/18 00:00 97.3 20 124/64 (84) 95 08/07/18 21:00 Room Air Room Air 08/07/18 20:38 66 18 95 Room Air 21 08/07/18 20:00 97.9 76 18 169/92 (117) 96 08/07/18 16:00 98.3 81 18 140/88 (105) 97 Intake and Output 08/07/18 08/08/18 19:00 07:00 Intake Total 640 ml 515.000 ml Balance 640 ml 515.000 ml Intake Oral 640 ml 240 ml IV Total 275.000 ml # Voids 3 2 Objective General Appearance: WD/WN HEENT: normocephalic, atraumatic Respiratory/Chest: chest wall non-tender, lungs clear Cardiovascular: normal peripheral pulses, normal rate Abdomen: normal bowel sounds, soft, non tender Genitourinary: normal external genitalia Extremities: no clubbing Skin: no rash Microbiology Date/Time Source Procedure Growth Status 08/05/18 15:45 Blood Blood Culture - Preliminary NO GROWTH AFTER 24 HOURS Resulted 08/05/18 15:30 Blood Blood Culture - Preliminary NO GROWTH AFTER 24 HOURS Resulted 08/06/18 00:00 Indwelling Cath Urine Culture - Final Mixed Gram Positive Organism Complete Laboratory Tests 08/08/18 08:22: White Blood Count 5.0, Red Blood Count 4.52L, Hemoglobin 14.4, Hematocrit 42.5, Mean Corpuscular Volume 94, Mean Corpuscular Hemoglobin 31.9H, Mean Corpuscular Hemoglobin Concent 34.0, Red Cell Distribution Width 12.8, Platelet Count 106L, Mean Platelet Volume 12.0H, Neutrophils (%) (Auto) 46.9, Lymphocytes (%) (Auto) 38.7, Monocytes (%) (Auto) 9.7, Eosinophils (%) (Auto) 2.7, Basophils (%) (Auto ) 1.9, Sodium Level 144, Potassium Level 3.8, Chloride Level 108H, Carbon Dioxide Level 29, Anion Gap 7, Blood Urea Nitrogen 22H, Creatinine 1.0, Estimat Glomerular Filtration Rate , Glucose Level 134H, Calcium Level 9.3, Vancomycin Level Trough 9.9 Current Medications Medications (Trade) Dose Ordered Sig/Cosme Route PRN Reason Start Time Stop Time Status Last Admin Dose Admin Acetaminophen (Tylenol) 650 mg Q4H PRN ORAL T>100.5 08/05/18 15:15 09/04/18 15:14 Albuterol/ Ipratropium (Albuterol/ Ipratropium) 3 ml Q4H PRN HHN Shortness of Breath 08/05/18 15:15 08/10/18 15:14 Heparin Sodium (Porcine) (Heparin 5000 units/ml) 5,000 units EVERY 12 HOURS SUBQ 08/05/18 21:00 09/04/18 20:59 08/08/18 10:40 Memantine (Namenda) 5 mg DAILY ORAL 08/09/18 09:00 09/08/18 08:59 Morphine Sulfate (Morphine Sulfate) 2 mg Q4H PRN IVP Moderate Pain (Pain Scale 4-6) 08/05/18 15:15 08/12/18 15:14 Ondansetron HCl (Zofran) 4 mg Q6H PRN IVP Nausea & Vomiting 08/05/18 15:15 09/04/18 15:14 Phenazopyridine HCl (Pyridium) 100 mg DAILYPRN PRN ORAL dysuria 08/05/18 15:15 09/04/18 15:14 Polyethylene Glycol (Miralax) 17 gm DAILYPRN PRN ORAL Constipation 08/05/18 15:15 09/04/18 15:14 Temazepam (Restoril) 15 mg HSPRN PRN ORAL Insomnia 08/05/18 21:00 08/12/18 20:59 Gina Rodriguez MD Aug 08, 2018 13:09
[2018-08-08] MEDS ORDERED: TEMAZEPAM15 MG ORAL (15:32)
[2018-08-08] MEDS ORDERED: NAMENDA5 MG ORAL (15:33)
[2018-08-08] MEDS ORDERED: DUONEB 0.5-3(2.53 ML HHN (15:34)
[2018-08-08] MEDS ORDERED: MIRALAX17 G2 ORAL (15:34)
--- NOTE | 2018-08-08 17:05 | NUR ---
NURSE NOTES: Report given to Kandis ,patient son aware of discharge.IV saline lock removed,ID hospital band removed,patient has personal belongings.report given to Toya PIRES. [facility] ambulance personnel will transport patient. Addendum: 08/08/18 at 1721 by JACOB ROLAND RN RN Patient has cell phone Addendum: 08/08/18 at 1848 by JACOB ROLAND RN RN patient has his Dentures uppers and lower in his mouth
--- NOTE | 2018-08-08 21:00 | Progress Note ---
SUBJECTIVE: This is an 88-year-old male patient who is admitted to the [facility] secondary to acute urinary tract infection, altered mental status and Parkinson disease with acute encephalopathy. So, the patient still has some confusion and some disorganized thought process on interview and the patient is alert, but the patient still has some confusion, some disorganized thought process. The patient seems to have some depression and anxiety, slightly less altered and was requested . MENTAL STATUS EXAMINATION: This is a 88-year-old male patient. Appearance is disheveled. Attitude, irritable and agitated. Affect, guarded and restricted. Intellect poor. Mood, depressed and anxious. Motor activity, psychomotor agitation. Attention span is poor. Orientation x2. Speech is low volume, slurred. Thought process, disorganized and illogical. Insight and judgment is poor. DIAGNOSIS: Major depressive disorder, mild, recurrent, without psychotic features. PLAN: My plan for this patient is, I am going to treat him with a medication regimen of Namenda at a dose of 5 mg daily to prevent any further decline in cognition and he will continue to be followed by Psychiatry throughout hospital course. 20 minutes of cognitive behavioral therapy to help identify automatic negative thoughts and help to convert negative thoughts to more positive thoughts to reduce depression, anxiety, and mood lability. Chart reviewed. Discussed with staff. Seen and assessed at bedside. Ethel Cavazos M.D. DR: RICHARD JOB#: [id number] CC:
[2018-08-09] MEDS ORDERED: Memantine 5 MG TAB ORAL SCH (09:00)
--- NOTE | 2018-08-10 20:50 | Discharge Summary ---
Discharge Summary Discharge Summary _ DATE OF ADMISSION: 08/05/2018 DATE OF DISCHARGE: 08/08/2018 DISCHARGED BY: Dr Chapin REASON FOR ADMISSION: [] 88 years old male with past medical history of Parkinson disease, schizophrenia, anxiety, was brought to the emergency department with generalized weakness and altered mental status. . Patient also had significant bilateral lower extremity edema. Patient denies chest pain orthopnea shortness of breath. Patient was guided by his grandson. Laboratory work-up was not impressive. Chest x-ray revealed no acute cardiopulmonary pathology. Urinalysis revealed possible UTI. Patient was admitted to medical surgical floor for further evaluation and management CONSULTANTS: reverse unit operator neurologist Dr. Carroll pulmonary Dr. Rodriguez ID specialist Dr. Ram GI specialist health and social care teacher connie scratcher/oncologist surgery psychiatrist Dr. Cavazos [facility] COURSE: [] Patient admitted to medical surgical floor. Supportive care provided. Patient initially started on empiric antibiotics. Blood cultures were negative. Urine culture revealed mixed gram-positive organism. Antibiotic stopped as per ID specialist recommendation. Neurologist followed. After mental status improved with IV fluids and empiric antibiotic. Neurologist recommended psychiatric evaluation delete. Opioids benzodiazepines and anticholinergic medication were avoided. Neurologist stated that there was no indication for neuroimaging at this time. DVT prophylaxis provided. Patient was working as a physical therapist. Psychiatrist seen and evaluated patient and started patient on Namenda. Cognitive behavioral therapy provided. Patient clinically stabilized and was ready for transfer to alf facility for continuation of care FINAL DIAGNOSES: 1. [] Acute encephalopathy Urinary tract infection Schizophrenia Parkinson disease Major depressive disorder mild recurrent without psychotic features DISCHARGE MEDICATIONS: See Medication Reconciliation list. DISCHARGE INSTRUCTIONS: [] Patient was discharged to the alf facility. Follow up with medical doctor at the facility. I have been assigned to dictate discharge summary for this account. I was not involved in the patient's management. Mely Martins NP Aug 10, 2018 20:50
== END 2018-08-08 17:30 | DRG 690 ==
LOC: EMR 14:20 → 4E 15:58 → EDBEDREQ 16:15 → SDSOVERFLO 08-06 17:07 → 4E 08-06 17:08
DX: N39.0 Urinary tract infection, site not specified (principal); G93.40 Encephalopathy, unspecified; F33.0 Major depressive disorder, recurrent, mild; F20.9 Schizophrenia, unspecified; G20 Parkinson's disease; Z85.46 Personal history of malignant neoplasm of prostate; F41.1 Generalized anxiety disorder
CPT/HCPCS: 36415; 71045; 80048; 80053; 80202; 81001; 81003; 82550; 82553; 83735; 84100; 84484; 85025; 85651; 86140; 87040; 87086; 93005; 94664; 97803; 99285; J7620